=== PATIENT | female | born 1940 | race Two or more races ===

== ENCOUNTER 2020-09-21 00:26 | Inpatient (IN) | payer OTHER, MEDICAID ==
[2020-09-21] VITALS (9 sets, daily range): BP systolic 100–148; BP diastolic 64–96
[~2020-09-21] VITALS: Ht 157.5 cm; Wt 64.4 kg
--- NOTE | 2020-09-21 00:43 | Emergency Room Report ---
History of Present Illness General Chief Complaint: Dyspnea/Respdistress Source: Patient, EMS Present Illness HPI This is a 80-year-old Kiswahili-speaking female with a history of hypertension. She presents with complaint of shortness of breath. She tested positive for Covid 2 weeks ago. Was recuperating at home but symptoms worsen in the last couple days. She developed shortness of breath and worsening symptom today. She had to call 911 because she could not breathe. Per EMS, she was 84% on room air. She was 90% on a nonrebreather. Patient complaining of tightness in her chest. Has cough but nonproductive nature. Worse with exertion. Better with rest. No nausea vomiting or diarrhea. 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 COVID-19 Screening: Positive COVID-19 COVID-19 Testing Source: UNKNOWN Patient History Past Medical History: see triage record, old chart reviewed, HTN Past Surgical History: other Pertinent Family History: none Social History: Denies: smoking Now: No Immunizations: other Reviewed Nursing Documentation: PMH: Agreed; PSxH: Agreed Review of Systems Constitutional: Reports: weakness Eye: Denies: eye pain, blurred vision ENT: Denies: ear pain, nose congestion, throat swelling Respiratory: Reports: cough, shortness of breath Cardiovascular: Denies: chest pain, palpitations Gastrointestinal: Denies: abdominal pain, diarrhea, nausea, vomiting Musculoskeletal: Denies: back pain, joint pain Skin: Denies: rash Neurological: Denies: headache, numbness Endocrine: Denies: increased thirst, increased urine Hematologic/Lymphatic: Denies: easy bruising All Other Systems: negative except mentioned in HPI Physical Exam Vitals with hypoxia Sp02 EP Interpretation: reviewed, abnormal General Appearance: well appearing, alert, moderate distress, other - Ill- appearing Head: normocephalic, atraumatic Eyes: bilateral eye PERRL, bilateral eye EOMI ENT: hearing grossly normal, normal pharynx Neck: full range of motion, supple, no meningismus Respiratory: chest non-tender, respiratory distress, decreased breath sounds, accessory muscle use, rhonchi Cardiovascular #1: regular rate, rhythm, no murmur Gastrointestinal: normal bowel sounds, non tender, no mass, no organomegaly, no bruit, non-distended Musculoskeletal: back normal, normal range of motion, gait/station normal Psychiatric: mood/affect normal Procedures Critical Care Time Critical Care Time Critical care is mandated in this patient who presented with acute respiratory failure from Covid pneumonia. Patient require my urgent intervention to attenuate the risks of metabolic collapse which may lead to cardiovascular collapse and . Critical care time is 35 minutes excluding any reportable procedure. Critical care time included evaluation, multiple reevaluation, looking at old charts, interpreting laboratory and diagnostic data, discussing case with patient and family and consultants, and charting. Medical Decision Making Diagnostic Impression: Primary Impression: Acute respiratory failure with hypoxia Additional Impressions: Pneumonia due to COVID-19 virus Sepsis Qualified Codes: A41.9 - Sepsis, unspecified organism; R65.20 - Severe sepsis without septic shock; J96.01 - Acute respiratory failure with hypoxia ER Course This patient presents with acute respiratory failure secondary to Covid pneumonia. Prognosis poor because of her age and medical condition and hypoxia. Better with BiPAP. She is more comfortable. Antibiotics given here. Steroid also given and Lovenox given. EKG Diagnostic Results Troponin ordered: Yes Rate: tachycardiac Rhythm: NSR ST Segments: other - NSST changes Rhythm Strip Diag. Results EP Interpretation: yes Rate: 100 Rhythm: NSR, no PVC's, no ectopy Chest X-Ray Diagnostic Results Chest X-Ray Diagnostic Results : Chest X-Ray Ordered: Yes # of Views/Limited/Complete: 1 View Indication: Shortness of Breath EP Interpretation: Yes Interpretation: no effusion, no pneumothorax, other - Bilateral interstitial and airspace infiltrates Impression: Other - Bilateral infiltrates Electronically Signed by: Lazaro Chaparro MD Status: improved Disposition: ADMITTED INPATIENT Condition: Serious Lazaro Chaparro MD Sep 21, 2020 00:43
[2020-09-21] MEDS ORDERED: cefTRIAXone 1 GM in NS 55 ML IV ONE (00:45)
[2020-09-21] MEDS ORDERED: dexAMETHasone 10mg/ml Inj IV ONE (00:45)
[2020-09-21] MEDS ORDERED: Azithromycin 500 MG in NS 275 ML IVPB ONE (00:45)
[2020-09-21] MEDS ORDERED: Enoxaparin 60mg Inj SUBQ ONE (00:45)
--- NOTE | 2020-09-21 00:45 | NUR ---
ED Nurse Note: Pt brought in by EMS. C/O SOB worse x2 days and recent positive covid 19 test. Pt on 15LPM non-rebreather with fast respiratory rate. Pt AAO x4.
--- NOTE | 2020-09-21 01:09 | Diagnostic Imaging Report ---
EXAM: XR Chest, 1 View CLINICAL HISTORY: SOB TECHNIQUE: Frontal view of the chest. COMPARISON: No relevant prior studies available. FINDINGS: Lungs: Bilateral interstitial and airspace opacities. Pleural space: No pleural effusion. No pneumothorax. Heart: Unremarkable. No cardiomegaly. IMPRESSION: Bilateral interstitial and airspace opacities, differential of multifocal infection/Covid or pulmonary edema.
--- NOTE | 2020-09-21 01:18 | NUR ---
ED Nurse Note: RT called, said pt will come in and give breathing treatment.
[2020-09-21 01:20] LABS: HEMATOCRIT 36.9 % (37.0-47.0); HEMOGLOBIN 13.3 G/DL (12.0-16.0); MEAN CORPUSCULAR VOLUME 78 FL (80-99); PLATELET COUNT 351 K/UL (150-450); RED BLOOD COUNT 4.73 M/UL (4.20-5.40); RED CELL DISTRIBUTION WIDTH 13.8 % (11.6-14.8)
--- NOTE | 2020-09-21 01:20 | NUR ---
ED Nurse Note: RT in room with pt, starting pt on bipap. Pt pulled up in bed.
[2020-09-21 01:21] LABS: WHITE BLOOD COUNT 23.5 K/UL (4.8-10.8)
[2020-09-21 01:23] LABS: INR 1.2 (0.9-1.1)
[2020-09-21 01:25] LABS: CALCIUM 7.4 MG/DL (8.5-10.1); POTASSIUM 4.6 MMOL/L (3.5-5.1)
[2020-09-21 01:41] LABS: ALBUMIN 2.4 G/DL (3.4-5.0); ALBUMIN/GLOBULIN RATIO 0.6 (1.0-2.7); BILIRUBIN,TOTAL 0.7 MG/DL (0.2-1.0); CKMB 4.7 NG/ML (0.0-3.6)
[2020-09-21] MEDS: Albuterol ud Inhalation HHN PRN (01:48)
--- NOTE | 2020-09-21 02:34 | NUR ---
ED Nurse Note: Lactic drawn and sent to lab, pt reports she is starting to feel better. Pt has no additional needs at this time.
--- NOTE | 2020-09-21 02:50 | Emergency Room Report ---
Sepsis Event Note Evaluation Current Stage of Sepsis: Sepsis Possible Source: Pulmonary Focused Exam Allergies: Coded Allergies: No Known Allergies (Unverified , 09/21/20) Date Exam Occurred: Sep 21, 2020 Time Exam Occurred: 02:49 Laboratory Studies Laboratory Tests Test 09/21/20 00:45 09/21/20 02:20 White Blood Count 23.5 K/UL (4.8-10.8) *H Red Blood Count 4.73 M/UL (4.20-5.40) Hemoglobin 13.3 G/DL (12.0-16.0) Hematocrit 36.9 % (37.0-47.0) L Mean Corpuscular Volume 78 FL (80-99) L Mean Corpuscular Hemoglobin 28.1 PG (27.0-31.0) Mean Corpuscular Hemoglobin Concent 36.0 G/DL (32.0-36.0) Red Cell Distribution Width 13.8 % (11.6-14.8) Platelet Count 351 K/UL (150-450) Mean Platelet Volume 6.6 FL (6.5-10.1) Neutrophils (%) (Auto) % (45.0-75.0) Lymphocytes (%) (Auto) % (20.0-45.0) Monocytes (%) (Auto) % (1.0-10.0) Eosinophils (%) (Auto) % (0.0-3.0) Basophils (%) (Auto) % (0.0-2.0) Differential Total Cells Counted 100 Neutrophils % (Manual) 51 % (45-75) Lymphocytes % (Manual) 45 % (20-45) Monocytes % (Manual) 4 % (1-10) Eosinophils % (Manual) 0 % (0-3) Basophils % (Manual) 0 % (0-2) Band Neutrophils 0 % (0-8) Platelet Estimate Adequate Platelet Morphology Normal Microcytosis 1+ Prothrombin Time 12.7 SEC (9.30-11.50) H Prothromb Time International Ratio 1.2 (0.9-1.1) H Activated Partial Thromboplast Time 31 SEC (23-33) D-Dimer 16.99 mg/L FEU (0.00-0.49) H Sodium Level 124 MMOL/L (136-145) L Potassium Level 4.6 MMOL/L (3.5-5.1) Chloride Level 89 MMOL/L (98-107) L Carbon Dioxide Level 23 MMOL/L (21-32) Anion Gap 12 mmol/L (5-15) Blood Urea Nitrogen 16 mg/dL (7-18) Creatinine 1.0 MG/DL (0.55-1.30) Estimat Glomerular Filtration Rate 53.5 mL/min (>60) Glucose Level 214 MG/DL (74-106) H Lactic Acid Level 4.90 mmol/L (0.4-2.0) H Pending Calcium Level 7.4 MG/DL (8.5-10.1) L Ferritin 492 NG/ML (8-388) H Total Bilirubin 0.7 MG/DL (0.2-1.0) Aspartate Amino Transf (AST/SGOT) 69 U/L (15-37) H Alanine Aminotransferase (ALT/SGPT) 73 U/L (12-78) Alkaline Phosphatase 77 U/L (46-116) Lactate Dehydrogenase 451 U/L (81-234) H Total Creatine Kinase 288 U/L (26-308) Creatine Kinase MB 4.7 NG/ML (0.0-3.6) H Creatine Kinase MB Relative Index 1.6 Troponin I 0.131 ng/mL (0.000-0.056) C-Reactive Protein, Quantitative 26.2 mg/dL (0.00-0.90) H Pro-B-Type Natriuretic Peptide 2428 pg/mL (0-125) H Total Protein 6.6 G/DL (6.4-8.2) Albumin 2.4 G/DL (3.4-5.0) L Globulin 4.2 g/dL Albumin/Globulin Ratio 0.6 (1.0-2.7) L Lipase 112 U/L (73-393) Vital Signs Last 24 Hour Vital Signs Date Time Temp Pulse Resp B/P (MAP) Pulse Ox O2 Delivery O2 Flow Rate FiO2 09/21/20 02:33 103 34 106/64 100 Bi-pap 100 09/21/20 02:06 103 36 115/68 99 Bi-pap 09/21/20 01:50 107 38 97 Bi-Pap 109 38 94 09/21/20 01:49 109 94 100 09/21/20 01:40 99.9 110 26 148/96 85 Non-Rebreather 15.0 09/21/20 01:40 110 38 09/21/20 00:27 99.9 112 26 148/96 (113) 85 Non-Rebreather 15.0 Respiratory Exam: Rhonchi Cardiovascular Exam: RRR Capillary Refill: Less Than 2 Seconds Peripheral Pulse: Strong Pulse Location: Radial Skin Exam: Normal Turgor Lazaro Chaparro MD Sep 21, 2020 02:50
--- NOTE | 2020-09-21 02:56 | NUR ---
NURSE NOTES: Camelia Omer RN called from ER. gave pt report. awaiting pt to arrive to SDU.
--- NOTE | 2020-09-21 02:57 | NUR ---
TRANSFER TO FLOOR: Patient transferred to [facility] as ordered, per Dr. Chaparro . Report given to NEISHA Sapp. Belongings sent to floor with pt and documented in the pt belonging inventory.
--- NOTE | 2020-09-21 03:26 | NUR ---
NURSE NOTES: pt received from ER. pt brought up with all belongings. pt is alert and oriented times 4, able to follow commands. pt is showing ST on panel monitor, 103 HR, no other cardiac abnormalities noted. pt remains short of breath, with non rebreather. pt is sating 86% O2. pt was placed back on BIPAP when transferred to SDU bed, sating 95% with BIPAP. pt bed is low, locked, armed, call light within reach, bed rails up times 3. establish plan of care.
[2020-09-21] MEDS: Albuterol ud Inhalation HHN SCH ×6 (03:33→23:26)
--- NOTE | 2020-09-21 03:37 | NUR ---
NURSE NOTES: Called doctor Traore for admitting orders. reported pts current situation, status, vital signs, lab values, and history of pt. doctor Traore wanted to continue all ED orders. additionally Doctor ordered Lovenox for DVT prof, NS at 75 cc, Zosyn pharm to dose, Decadron IV, CBC BMP for AM labs, and to add doctor Tirmijessica for Pulmo on the case. will follow orders.
[2020-09-21 05:58] LABS: HEMATOCRIT 33.8 % (37.0-47.0); HEMOGLOBIN 12.2 G/DL (12.0-16.0); MEAN CORPUSCULAR VOLUME 79 FL (80-99); PLATELET COUNT 299 K/UL (150-450); RED BLOOD COUNT 4.29 M/UL (4.20-5.40); RED CELL DISTRIBUTION WIDTH 13.2 % (11.6-14.8)
[2020-09-21 06:01] LABS: ANION GAP 10 mmol/L (5-15); CARBON DIOXIDE 22 MMOL/L (21-32); CHLORIDE 94 MMOL/L (98-107); CREATININE 0.7 MG/DL (0.55-1.30); POTASSIUM 4.6 MMOL/L (3.5-5.1); SODIUM 126 MMOL/L (136-145)
[2020-09-21 06:20] LABS: WHITE BLOOD COUNT 23.9 K/UL (4.8-10.8)
[2020-09-21] MEDS: Piperacillin/Tazobactam 3.375 GM in NS 110 ML IVPB SCH ×3 (06:21→21:17)
[2020-09-21 06:35] LABS: BLOOD UREA NITROGEN 14 mg/dL (7-18)
--- NOTE | 2020-09-21 07:30 | NUR ---
NURSE HAND-OFF REPORT: Important Events on Shift:[admission] Patient Status: [monitor O2] Diet: [] Pending Orders: [NA] Pending Results/Labs:[AM labs] Pending MD notification:[AM labs] Latest Vital Signs: Temperature 98.7 , Pulse 100 , B/P 127 /76 , Respiratory Rate 33 , O2 SAT 95 , Bi-pap, O2 Flow Rate 15.0 . Vital Sign Comment: [monitor O2] EKG Rhythm: Sinus Rhythm Rhythm change?: N MD Notified?: - MD Response: Latest Velazquez Fall Score: 20 Fall Risk: Low Risk Safety Measures: Call light Within Reach, Bed Alarm Zone 2, Side Rails Side Rails x3, Bed position Low and Locked. Fall Precautions: Patient Fall Education Report given to [Maryann DRIVER].
--- NOTE | 2020-09-21 08:00 | NUR ---
NURSE NOTES: Pt was assessed after receiving change of shift report from Sekou DRIVER. Awake, alert, oriented x3, Occitan speaking. On Bipap, 15/10, FIO2 100% O2Sat 95%. Bilateral rales on auscultation. NSR on nuclear monitoring technician. Temp 97F axillary. Peripheral IV access on Right AC, NS is infusing at 75ml/hour. Abdomen is slightly distended, pt reports frequent need to urinate, Uses bedpan for urination, output of cloudy/dark jaye urine. Skin is intact. HOB at high-sarmiento's, bed locked, three side rails up, call light within easy reach. Will continue with plan of care.
--- NOTE | 2020-09-21 10:00 | NUR ---
NURSE NOTES: Augusto JONES rounding, updated on pt's current status. Informed regarding AM lab values including Na 126L. Pt is currently on NS infusing at 75ml/hour. Order received to cancel current diet order and continue current IV fluids.
[2020-09-21] MEDS: dexAMETHasone 10mg/ml Inj IV SCH (10:01)
[2020-09-21] MEDS: Enoxaparin 60mg Inj SUBQ SCH (10:02)
[2020-09-21] MEDS ORDERED: Omnipaque 350 100ml vial INJ PRN (12:15)
--- NOTE | 2020-09-21 12:15 | NUR ---
NURSE NOTES: Pt was seen by Dr Traore. MD was updated on pt's current status. Per MD, add Ensure to diet TID, and okay if pt unable to consume other PO diet, due to continuous Bipap, "provide Ensure to pt TID". No other orders at this time.
--- NOTE | 2020-09-21 12:30 | NUR ---
NURSE NOTES: Dr Sen is at the nurse's station. Order was placed for CTA of chest with contrast. Pt's family was contacted, spoke with pt's son Chepe Mckeon and received telephone consent for contrast.
--- NOTE | 2020-09-21 12:41 | Consultation ---
Consult Note Consult Note DATE OF CONSULTATION: 09/21/2020 CONSULTING PHYSICIAN: Shakeel Sen MD. ATTENDING PHYSICIAN: Dr. Traore REASON FOR CONSULTATION: COVID-19 pneumonia, elevated D-dimer HISTORY OF PRESENT ILLNESS: This is a 80-year-old female with history of hypertension, who presented to the ED for evaluation of shortness of breath. She reported testing positive for COVID-19 2 weeks ago. Patient was recovering at home but her symptoms worsened in the last few days. She was hypoxic on arrival and her oxygen saturation improved to 90% on a nonrebreather. She complained of tightness in her chest. She also presented with nonproductive cough which was worse with exertion. Her initial laboratory studies are remarkable for leukocytosis, markedly elevated D-dimer, hyperglycemia, hypocalcemia, elevated troponin, and elevated BNP. She was admitted to SDU. PAST MEDICAL HISTORY: Hypertension MEDICATIONS: Full list of home medications not available at this time ALLERGIES: No known allergy FAMILY HISTORY: Unknown PERSONAL/SOCIAL HISTORY: Patient is from home REVIEW OF SYSTEMS: Negative except mentioned in HPI PHYSICAL EXAMINATION: VITAL SIGNS: Blood pressure 109/65, heart rate 101, respiratory rate 22, weight 64 kg, height 157 cm General: Patient appears NAD on BiPAP. HEENT: Head exam reveals that the head is normocephalic, atraumatic without deformity or unusual swelling. Pupils are PERRLA. CHEST AND LUNGS: Rhonchi appreciated, decreased breath sounds CARDIOVASCULAR: Reveals normal S1, S2 without murmurs, rubs, or clicks. ABDOMEN: Soft with no tenderness or organomegaly. RECTAL: Deferred. MUSCULOSKELETAL: There is no tenderness to palpation. Range of motion is normal. NEUROLOGICAL: Alert and oriented x3 , nonfocal LABORATORY DATA: Laboratory testing shows WBC 23.9, hematocrit 33.8. Chemistries show sodium 126, chloride 94, glucose 178, calcium 7.0, lactic acid 2.4, troponin 0 0.131, CRP 26.2, BNP 2428 Assessment/Plan 1. Elevated inflammatory markers -Given her presentation, we will order CTA of chest with contrast to rule out pulmonary embolism -On Lovenox 2. Recent history of COVID-19 pneumonia with hypoxia on arrival -Patient was reported to test positive for COVID-19 2 weeks prior -On dexamethasone, and Zosyn 3. Hypoxia -Currently saturating at 98% on BiPAP 15/10, 100% FiO2 Will attempt weaning down to nonrebreather 4. Hyperglycemia, likely steroid-induced -Monitor blood glucose 5. Elevated troponin -Recommend serial troponin 6. Leukocytosis -On broad-spectrum antibiotics -Afebrile The care for this patient was discussed with my supervising physician. Time spent for this case was approximately 31 minutes. Augusto Hein Sep 21, 2020 12:41
--- NOTE | 2020-09-21 14:30 | NUR ---
NURSE NOTES: Pt uses bedpan for frequent urination, however with minimal output and is now complaining of bladder pain/discomfort. Starks catheter was inserted per order; with immediate initial output of 600mL dark yellow/jaye urine. Pt reports relief from discomfort.
--- NOTE | 2020-09-21 15:15 | NUR ---
NURSE NOTES: pc maintenance technician/transporter is the nurse's station to transfer pt for CTA of chest, spoke with RT, pt is currently on Bipap 15/10 FIo2 100%, and unable to tolerate lower FIO2 without immediately desaturating. Per RT, unsafe to transfer pt at this time due to Bipap/100% FIo2 dependency, will attempt tomorrow.
--- NOTE | 2020-09-21 16:30 | NUR ---
NURSE NOTES: Pt is confused and removed Bipap off face, and immediately desaturated down to 70% on room air. Bipap was placed back on face, and O2Sat improved back up to 90%. Pt was cleaned, bed bath given, gown/bed linens were changed. Pt was repositioned for comfort. Remains afebrile.
--- NOTE | 2020-09-21 19:30 | NUR ---
NURSE NOTES: Received report from Susy DRIVER. Awake, alert, oriented x3, Citizen Of [place] speaking. On Bipap, 15/10, FIO2 100% O2Sat 95%. ST on night monitor HR103. Temp 98.1 F axillary. Peripheral IV access on Right AC, NS is infusing at 75ml/hour.Starks draining. Skin is intact. HOB at high-sarmiento's, bed locked, three side rails up, call light within easy reach. Covid +. Airborne precaution maintained and observed. Will continue with plan of care.
--- NOTE | 2020-09-21 19:35 | NUR ---
NURSE HAND-OFF REPORT: Important Events on Shift:bipap, antibiotics, consent obtained for CTA Patient Status: stable Diet: low sodium Pending Orders: n/a Pending Results/Labs:n/a Pending MD notification:n/a Latest Vital Signs: Temperature 97.9 , Pulse 57 , B/P 126 /66 , Respiratory Rate 45 , O2 SAT 95 , Bi-pap, O2 Flow Rate 15.0 . Vital Sign Comment: n/a EKG Rhythm: Sinus Rhythm Rhythm change?: N MD Notified?: - MD Response: Latest Velazquez Fall Score: 20 Fall Risk: Low Risk Safety Measures: Call light Within Reach, Bed Alarm Zone 2, Side Rails Side Rails x3, Bed position Low and Locked. Fall Precautions: Yellow Socks Yellow Gown Door Sign Patient Fall Education Report given to Rosa DRIVER.
[2020-09-22] VITALS: BP 140/78
--- NOTE | 2020-09-22 01:00 | NUR ---
NURSE NOTES: Bed bath given tolerated well.
[2020-09-22] MEDS: Albuterol ud Inhalation HHN SCH ×6 (03:26→23:00)
[2020-09-22 04:00] VITALS: BP 137/78
[2020-09-22] MEDS: Piperacillin/Tazobactam 3.375 GM in NS 110 ML IVPB SCH ×3 (05:38→22:00)
--- NOTE | 2020-09-22 07:20 | NUR ---
NURSE HAND-OFF REPORT: Important Events on Shift: Patient Status: Diet: Pending Orders: none Pending Results/Labs: Pending MD notification: Latest Vital Signs: Temperature 98.1 , Pulse 97 , B/P 137 /78 , Respiratory Rate 41 , O2 SAT 97 , Bi-pap, O2 Flow Rate 15.0 . Vital Sign Comment: stable EKG Rhythm: Sinus Tachycardia Rhythm change?: N MD Notified?: - MD Response: Latest Velazquez Fall Score: 20 Fall Risk: Low Risk Safety Measures: Call light Within Reach, Bed Alarm Zone 2, Side Rails Side Rails x3, Bed position Low and Locked. Fall Precautions: Yellow Socks Yellow Gown Door Sign Patient Fall Education Report given to .
--- NOTE | 2020-09-22 07:20 | NUR ---
NURSE NOTES: Received report from Rosa DRIVER.
[2020-09-22 08:00] VITALS: BP 137/72
--- NOTE | 2020-09-22 08:45 | NUR ---
NURSE NOTES: Pt. in bed, awake, a/o x 2-3. Forgetful and confused at times. No sign of distress. On cont. Bipap 15/10 with Fi O2 of 100%. IV at right AC #20g. in placed patent/intact. And inserted a right hand #20g. in placed patent/intact. F/C in placed patent/intact draining dark jaye colored urine. Bed in low position, locked. Call light within reach. Will cont. to monitor.
[2020-09-22] MEDS: dexAMETHasone 10mg/ml Inj IV SCH (09:02)
[2020-09-22] MEDS: Enoxaparin 60mg Inj SUBQ SCH (09:02)
--- NOTE | 2020-09-22 09:26 | General Progress Note ---
Subjective Date patient seen: Sep 22, 2020 Constitutional: Reports: weakness HEENT: Reports: no symptoms Cardiovascular: Reports: no symptoms Respiratory: Reports: shortness of breath Gastrointestinal/Abdominal: Reports: no symptoms Neurologic/Psychiatric: Reports: no symptoms Hematologic/Lymphatic: Reports: no symptoms Allergies: Coded Allergies: No Known Allergies (Unverified , 09/21/20) Subjective sob on bipap taking off intermittentely Objective Last 24 Hour Vital Signs Date Time Temp Pulse Resp B/P (MAP) Pulse Ox O2 Delivery O2 Flow Rate FiO2 09/22/20 07:53 105 44 99 Bi-Pap 100 109 40 100 100 09/22/20 05:19 97 41 97 100 09/22/20 04:00 98.1 114 24 137/78 (97) 95 09/22/20 04:00 100 09/22/20 04:00 98 09/22/20 04:00 Bi-pap 09/22/20 03:26 99 36 93 Bi-Pap 100 98 37 96 100 09/22/20 00:31 107 42 94 100 09/22/20 00:00 Bi-pap 09/22/20 00:00 98.1 111 24 140/78 (98) 95 09/22/20 00:00 120 09/22/20 00:00 100 09/21/20 23:22 105 36 92 Bi-Pap 85 106 39 95 85 09/21/20 21:10 108 36 92 80 09/21/20 20:00 98.1 103 24 139/78 (98) 99 09/21/20 20:00 100 09/21/20 20:00 99 09/21/20 20:00 Bi-pap 09/21/20 19:58 100 38 100 Bi-Pap 80 101 36 98 80 09/21/20 16:08 57 45 95 Bi-Pap 100 61 40 100 100 09/21/20 16:00 100 09/21/20 16:00 98 09/21/20 16:00 97.9 102 24 126/66 (86) 99 09/21/20 16:00 Bi-pap 09/21/20 12:00 100 09/21/20 12:00 101 09/21/20 12:00 96.4 98 22 109/65 (80) 98 09/21/20 12:00 Bi-pap 09/21/20 11:20 98 40 99 Bi-Pap 100 99 38 100 100 Intake and Output 09/21/20 09/22/20 19:00 07:00 Intake Total 1092.5 ml 1547.5 ml Output Total 1400 ml 1200 ml Balance -307.5 ml 347.5 ml Intake Oral 500 ml IV Total 1092.5 ml 1047.5 ml Output Urine Total 1400 ml 1200 ml Height (Feet): 5 Height (Inches): 2.00 Weight (Pounds): 142 General Appearance: alert EENT: PERRL/EOMI Neck: supple Cardiovascular: regular rhythm Respiratory/Chest: rhonchi - bilaterally Abdomen: non tender, soft Extremities: non-tender Assessment/Plan Assessment/Plan: ac resp failure covid pna hyperglycemia hx htn agitation iv abx iv sdecadrone add ss, accue check cont bipap dw pulmonary Ori Traore MD Sep 22, 2020 09:25
[2020-09-22] MEDS: NovoLOG Insulin Flexpen SUBQ SCH ×3 (11:30→21:00)
--- NOTE | 2020-09-22 11:38 | Pulmonology Progress Note ---
Subjective ROS Limited/Unobtainable: Yes Interval Events: did not tolerate NRB Constitutional: Reports: no symptoms HEENT: Repors: no symptoms Respiratory: Reports: shortness of breath Cardiovascular: Reports: no symptoms Gastrointestinal/Abdominal: Reports: no symptoms Allergies: Coded Allergies: No Known Allergies (Unverified , 09/21/20) Objective Last 24 Hour Vital Signs Date Time Temp Pulse Resp B/P (MAP) Pulse Ox O2 Delivery O2 Flow Rate FiO2 09/22/20 08:00 96.6 105 16 137/72 (93) 99 09/22/20 08:00 100 09/22/20 08:00 Bi-pap 09/22/20 07:53 105 44 99 Bi-Pap 100 109 40 100 100 09/22/20 07:42 103 09/22/20 05:19 97 41 97 100 09/22/20 04:00 98.1 114 24 137/78 (97) 95 09/22/20 04:00 100 09/22/20 04:00 98 09/22/20 04:00 Bi-pap 09/22/20 03:26 99 36 93 Bi-Pap 100 98 37 96 100 09/22/20 00:31 107 42 94 100 09/22/20 00:00 Bi-pap 09/22/20 00:00 98.1 111 24 140/78 (98) 95 09/22/20 00:00 120 09/22/20 00:00 100 09/21/20 23:22 105 36 92 Bi-Pap 85 106 39 95 85 09/21/20 21:10 108 36 92 80 09/21/20 20:00 98.1 103 24 139/78 (98) 99 09/21/20 20:00 100 09/21/20 20:00 99 09/21/20 20:00 Bi-pap 09/21/20 19:58 100 38 100 Bi-Pap 80 101 36 98 80 09/21/20 16:08 57 45 95 Bi-Pap 100 61 40 100 100 09/21/20 16:00 100 09/21/20 16:00 98 09/21/20 16:00 97.9 102 24 126/66 (86) 99 09/21/20 16:00 Bi-pap 09/21/20 12:00 100 09/21/20 12:00 101 09/21/20 12:00 96.4 98 22 109/65 (80) 98 09/21/20 12:00 Bi-pap Intake and Output 09/21/20 09/22/20 19:00 07:00 Intake Total 1092.5 ml 1547.5 ml Output Total 1400 ml 1200 ml Balance -307.5 ml 347.5 ml Intake Oral 500 ml IV Total 1092.5 ml 1047.5 ml Output Urine Total 1400 ml 1200 ml General Appearance: no acute distress HEENT: atraumatic Respiratory: rhonchi - bilaterally Cardiovascular: normal rate Abdomen: soft, non tender Microbiology Date/Time Source Procedure Growth Status 09/21/20 00:45 Blood Blood Culture - Preliminary NO GROWTH AFTER 24 HOURS Resulted 09/21/20 00:20 Blood Blood Culture - Preliminary NO GROWTH AFTER 24 HOURS Resulted Current Medications Medications (Trade) Dose Ordered Sig/Lui Route PRN Reason Start Time Stop Time Status Last Admin Dose Admin Acetaminophen (Tylenol) 650 mg Q4HR PRN ORAL TEMP>100.5 09/21/20 03:00 Albuterol Sulfate (Proventil) 2.5 mg Q15MIN PRN HHN Shortness of Breath 09/21/20 00:45 09/21/20 01:48 Albuterol Sulfate (Proventil) 2.5 mg Q4HRT HHN 09/21/20 03:00 09/26/20 02:59 09/22/20 10:42 Dexamethasone Sodium Phosphate (Decadron 10mg/ ml Inj) 6 mg DAILY IV 09/21/20 09:00 12/20/20 08:59 09/22/20 09:02 Dextrose (Dextrose 50%) 25 ml Q30M PRN IV Hypoglycemia 09/22/20 10:15 12/21/20 10:14 Dextrose (Dextrose 50%) 50 ml Q30M PRN IV Hypoglycemia 09/22/20 10:15 12/21/20 10:14 Enoxaparin Sodium (Lovenox) 60 mg DAILY SUBQ 09/21/20 09:00 12/20/20 08:59 09/22/20 09:02 Insulin Aspart (NovoLOG) BEFORE MEALS AND HS SUBQ 09/22/20 11:30 12/21/20 11:29 Iohexol (Omnipaque 350 100ml) 100 ml NOW PRN INJ Radiology Procedure 09/21/20 12:15 09/23/20 12:14 Ondansetron HCl (Zofran) 4 mg PRN PRN IVP Nausea & Vomiting 09/21/20 03:00 Piperacillin Sod/ Tazobactam Sod 3.375 gm/Sodium Chloride 110 ml @ 27.5 mls/hr EVERY 8 HOURS IVPB 09/21/20 06:00 09/26/20 05:59 09/22/20 05:38 Sodium Chloride 1,000 ml @ 75 mls/hr [id number] IV 09/21/20 04:00 10/21/20 03:59 09/21/20 21:18 Assessment/Plan Assessment/Plan 1. Elevated inflammatory markers -Given her presentation, we will order CTA of chest with contrast to rule out pulmonary embolism -On Lovenox 2. Recent history of COVID-19 pneumonia with hypoxia on arrival -Patient was reported to test positive for COVID-19 2 weeks prior -On dexamethasone, and Zosyn 3. Hypoxia -Currently saturating at 98% on BiPAP 15/10 -> 12/5, 100% FiO2 Will attempt titrating 4. Hyperglycemia, likely steroid-induced -Monitor blood glucose - low dose insulin sliding scale 5. Elevated troponin -Recommend serial troponin 6. Leukocytosis -On broad-spectrum antibiotics -Afebrile The care for this patient was discussed with my supervising physician. Time spent for this case was approximately 31 minutes. Augusto Hein Sep 22, 2020 11:38
[2020-09-22 12:00] VITALS: BP 154/93
--- NOTE | 2020-09-22 12:20 | NUR ---
NURSE NOTES: Sponge bath given to pt. Cooperative with care. Able to self reposition. On cont. Bipap. No grimacing noted. Anxious at times.
[2020-09-22] MEDS: Albuterol ud Inhalation HHN PRN (15:16)
[2020-09-22 16:00] VITALS: BP 142/85
[2020-09-22 16:18] LABS: BILIRUBIN, URINE NEGATIVE (NEGATIVE); COLOR,URINE PALE YELLOW; GLUCOSE, URINE (UA) NEGATIVE (NEGATIVE); KETONES,URINE NEGATIVE (NEGATIVE); LEUKOCYTE ESTERASE ,URINE NEGATIVE (NEGATIVE); NITRITE,URINE NEGATIVE (NEGATIVE); PH,URINE 8 (4.5-8.0); PROTEIN,URINE 3+ (NEGATIVE); UROBILINOGEN,URINE NORMAL MG/DL (0.0-1.0)
[2020-09-22 16:23] LABS: APPEARANCE,URINE SLIGHTLY CLOUDY
--- NOTE | 2020-09-22 19:20 | NUR ---
NURSE NOTES: Received report from Federica DRIVER.patient Awake, alert, oriented x3, Lao speaking. On Bipap, 15/10, FIO2 100% O2Sat 95%. SR on monitor worker HR 83. Temp 98.1 F axillary. IV line intact infusing 75ml/hour.Starks draining. Skin is intact. HOB bed locked, call light within easy reach. Covid +. Airborne precaution maintained and observed. Will continue with plan of care.
--- NOTE | 2020-09-22 19:24 | NUR ---
NURSE HAND-OFF REPORT: Important Events on Shift: Pt. on cont. Bipap Patient Status: stable Diet: npo Pending Orders: [] Pending Results/Labs:[] Pending MD notification:[] Latest Vital Signs: Temperature 98.0 , Pulse 105 , B/P 142 /85 , Respiratory Rate 38 , O2 SAT 96 , Bi-pap, O2 Flow Rate 15.0 . Vital Sign Comment: wnl EKG Rhythm: Sinus Tachycardia Rhythm change?: N MD Notified?: - MD Response: Latest Velazquez Fall Score: 20 Fall Risk: Low Risk Safety Measures: Call light Within Reach, Bed Alarm Zone 2, Side Rails Side Rails x3, Bed position Low and Locked. Fall Precautions: Yellow Socks Yellow Gown Door Sign Patient Fall Education Report given to Rosa DRIVER.
[2020-09-22 20:00] VITALS: BP 146/89
[2020-09-23] VITALS (43 sets, daily range): BP systolic 63–158; BP diastolic 46–130
--- NOTE | 2020-09-23 | NUR ---
NURSE NOTES: Bed bath given tolerated well.
--- NOTE | 2020-09-23 02:00 | NUR ---
NURSE NOTES: Patient in bed sleeping comfortably.
[2020-09-23] MEDS: Albuterol ud Inhalation HHN SCH ×3 (03:00→11:00)
--- NOTE | 2020-09-23 03:52 | NUR ---
NURSE NOTES: Patient desatting to 80% On BIPAP 07/27 fi02 100%. patient restless instructed patient to relax, encouraged patient to verbalized needs,fears and feelings to staff. repositioned and talk therapy provided translated by Russian speaking nurse, per patient she wants to see her mother. reality orientation provided. ordered stat ABG. will continue plan of care.
--- NOTE | 2020-09-23 04:40 | NUR ---
called NAIL POLISH BRUSH MACHINE FEEDER
--- NOTE | 2020-09-23 04:42 | NUR ---
NURSE NOTES: Called Dr. Sen made aware of ABG and patient CONSULTING ENGINEER and changed of condition. per Dr. Sen transfer to ICu, call ER MD to intubate patient. Called ER spoke with Gabriel martinez inform ER MD.
--- NOTE | 2020-09-23 04:52 | NUR ---
LOSS PREVENTION SUPERVISOR Note: LOSS PREVENTION SUPERVISOR was called at [SDU room 238-1] by [Tanisha DRIVER], and notified MD [Dr. Sen]. Pt transferred to [ICU] at [[id number]]. See LOSS PREVENTION SUPERVISOR documentation form for full report.
--- NOTE | 2020-09-23 05:05 | NUR ---
NURSE NOTES: RECEIVED PATIENT FROM NEISHA GALLOWAY VIA HOSPITAL BED AFTER INSTANT POTATO PROCESSOR. PATIENT LETHARGIC, NO RESPONSE TO VOICE AND TACTILE STIMULI AT THAT TIME, ON BIPAP 12/5, FIO2 100%, DESATURATION 50% NOTED, PPL TO RIGHT AC AND LEFT HAQND, F/C INTACT AND PATENT, MIKE COLOR URINE OUTED, WILL CONTINUE TO MONITOR.
--- NOTE | 2020-09-23 05:20 | NUR ---
NURSE NOTES: CALLED DR. HAMILTON REGARDING PT'S SITUATION BP 63/49MMHG, INTUBATION AND CENTRAL LINE INSERTION STATUS BY ER DOCTOR THAT LEFT MESSAGE AWAIT CALL.
--- NOTE | 2020-09-23 05:57 | Emergency Room Report ---
History of Present Illness General Chief Complaint: Dyspnea/Respdistress Source: Patient Present Illness HPI 80-year-old female who was admitted to stepdown unit on BiPAP for acute respiratory failure with hypoxia from Covid pneumonia. She deteriorated and required intubation. I intubated the patient after giving her succinylcholine and etomidate. Intubation without any difficulty. Afterward her blood pressure dropped so I place a central line. Allergies: Coded Allergies: No Known Allergies (Unverified , 09/21/20) COVID-19 Screening Contact w/high risk pt: Yes Experienced COVID-19 symptoms?: Yes COVID-19 Testing performed HEAD TRANSFER CLERK: Yes - 2 WEEKS AGO COVID-19 Screening: Positive COVID-19 COVID-19 Testing Source: UNKNOWN Patient History Now: No Nursing Documentation-[facility] Past Medical History: No History, Except For Hx Hypertension: Yes Physical Exam Vital Signs Date Time Temp Pulse Resp B/P (MAP) Pulse Ox O2 Delivery O2 Flow Rate FiO2 09/21/20 00:27 99.9 112 26 148/96 (113) 85 Non-Rebreather 15.0 09/21/20 01:49 100 Procedures Central Line Central Line : Consent: Emergent Central Line Lumen: triple Maximal Sterile Barrier Tech: yes cap, yes mask, yes sterile gown, yes sterile gloves, yes large sterile sheet, yes hand hygiene, yes chlorhexidine prep Central Line Postion: femoral (R) US Guided Line?: No Complications: none Central Line Post Position: sutured Attempts: One Patient Tolerated: Well Complications: None Intubation Intubation : Consent: Emergent Intubation Method: orotracheal Tube Size (cm): 7.5 Medications: Etomidate, Succinylcholine Breath Sounds after Intubation: equal Intubation Complications: no complications, O2 saturation decreased Post Intubation Xray: Yes Progress/Xray Impression: Tracheal tube in good position. Multi lobar infiltrates Attempts: One Patient Tolerated: Well Complications: None Medical Decision Making Diagnostic Impression: Primary Impression: Acute respiratory failure with hypoxia Additional Impressions: Pneumonia due to COVID-19 virus Sepsis Qualified Codes: A41.9 - Sepsis, unspecified organism; R65.20 - Severe sepsis without septic shock; J96.01 - Acute respiratory failure with hypoxia Respiratory failure requiring intubation ER Course Patient with respiratory failure required intubation secondary to Covid pneumonia and hypoxia. Prognosis poor secondary to her age and multiple medical problems. Chest X-Ray Diagnostic Results Chest X-Ray Diagnostic Results : Chest X-Ray Ordered: Yes # of Views/Limited/Complete: 1 View Indication: Shortness of Breath EP Interpretation: Yes Interpretation: no effusion, no pneumothorax, other - Tracheal tube in good position. No pneumothorax. Multi lobar infiltrates. Impression: Other - Status post intubation. Multi lobar infiltrates. Endotracheal tube in good position. Electronically Signed by: Lazaro Chaparro MD Last Vital Signs Date Time Temp Pulse Resp B/P (MAP) Pulse Ox O2 Delivery O2 Flow Rate FiO2 09/23/20 05:32 78 29 100 09/23/20 04:00 Bi-pap 09/23/20 00:00 98.2 144/97 (113) 95 09/21/20 01:40 15.0 Status: improved Disposition: ADMITTED INPATIENT Condition: Critical Referrals: NOT CHOSEN IPA/,REFERRING (PCP) Lazaro Chaparro MD Sep 23, 2020 05:57
--- NOTE | 2020-09-23 05:59 | History and Physical Report ---
DATE OF ADMISSION: 09/21/2020 HISTORY OF PRESENT ILLNESS: This is a 80-year-old cachectic female, came to the emergency room for shortness of breath and hypoxia. The patient was found to have severe hypoxia, was placed on BiPAP and was found to have COVID pneumonia. The patient is alert and oriented. PAST MEDICAL HISTORY: Significant for hypertension. MEDICATIONS: Not available. ALLERGIES: NKA. FAMILY HISTORY: Noncontributory. SOCIAL HISTORY: The patient lives with the family with the son. REVIEW OF SYSTEMS: Generalized weakness, tired, cough with sputum production, and feeling short of breath on exertion. Weight loss and having recurrent fever. PHYSICAL EXAMINATION: VITAL SIGNS: Her blood pressure 100/71, pulse 87, respirations 24, temperature 97, and saturation 95% on 100% oxygen. SKIN: Good skin turgor. HEENT: Eyes are open. NECK: Supple. CHEST: Bilaterally scattered wheezing and crackles. CARDIOVASCULAR: Regular rhythm. No gallop. No murmur. ABDOMEN: Soft. Positive bowel sounds. EXTREMITIES: No edema. : Deferred. LABORATORY EXAMINATION: White counts are 23,000, hemoglobin 13, hematocrit 36, and platelets are 351. Chemistry panel, sodium 126, potassium 4.6, BUN 14, creatinine 0.7, glucose is 218. Lactic acid is 4.90, 2.50. Coagulation, INR is 1.2. IMAGING: Chest x-ray is showing bilateral interstitial airspace opacity. Differential is multifocal infection, COVID, or pulmonary edema. ASSESSMENT: 1. Acute respiratory failure. 2. COVID pneumonia. 3. Weight loss. 4. Severe hyponatremia. 5. History of hypertension. 6. Weakness. PLAN: The patient is currently on BiPAP, isolation, 100% oxygen. Continue Decadron. Continue Lovenox and Zosyn. Continue albuterol, Tylenol, Zofran, bronchodilator treatments. Consider Pulmonary consult and we will titrate BiPAP. Discussed with the airplane gas tank liner assembler, Dr. Sen. Valentino Traore M.D. DR: Omar JOB#: [id number] CC:
[2020-09-23] MEDS: Piperacillin/Tazobactam 3.375 GM in NS 110 ML IVPB SCH ×3 (06:20→22:03)
[2020-09-23] MEDS: NovoLOG Insulin Flexpen SUBQ SCH ×4 (06:20→21:19)
--- NOTE | 2020-09-23 06:35 | NUR ---
NURSE NOTES: PATIENT LETHARGIC, BP 97/77MMHG, HR 91/MIN SR, O2 SATURATION 60% NOTED ON AC 15/TV500/FIO2 1005/PEEP 5 AT THIS TIME.
[2020-09-23 07:12] LABS: ALANINE AMINOTRANSFERASE 141 U/L (12-78); ALBUMIN 1.8 G/DL (3.4-5.0); ALBUMIN/GLOBULIN RATIO 0.5 (1.0-2.7); ALKALINE PHOSPHATASE 140 U/L (46-116); ANION GAP 15 mmol/L (5-15); ASPARTATE AMINO TRANSFERASE 193 U/L (15-37); BILIRUBIN,TOTAL 0.7 MG/DL (0.2-1.0); BLOOD UREA NITROGEN 19 mg/dL (7-18); CARBON DIOXIDE 16 MMOL/L (21-32); CHLORIDE 110 MMOL/L (98-107); CREATININE 0.9 MG/DL (0.55-1.30); POTASSIUM 5.1 MMOL/L (3.5-5.1); SODIUM 141 MMOL/L (136-145)
[2020-09-23 07:13] LABS: HEMATOCRIT 34.9 % (37.0-47.0); HEMOGLOBIN 11.3 G/DL (12.0-16.0); MEAN CORPUSCULAR VOLUME 83 FL (80-99); PLATELET COUNT 190 K/UL (150-450); RED CELL DISTRIBUTION WIDTH 14.9 % (11.6-14.8)
[2020-09-23 07:15] LABS: WHITE BLOOD COUNT 29.1 K/UL (4.8-10.8)
--- NOTE | 2020-09-23 07:15 | NUR ---
NURSE HAND-OFF REPORT: Latest Vital Signs: Temperature 97.0 , Pulse 84 , B/P 103 /69 , Respiratory Rate 35 , O2 SAT 61 , Bi-pap, O2 Flow Rate 15.0 . Vital Sign Comment: EKG Rhythm: Sinus Rhythm Rhythm change?: N MD Notified?: - MD Response: Latest Velazquez Fall Score: 20 Fall Risk: Low Risk Safety Measures: Call light Within Reach, Bed Alarm Zone 2, Side Rails Side Rails x3, Bed position Low and Locked. Fall Precautions: Yellow Socks Yellow Gown Door Sign Patient Fall Education Report given to NEISHA Perry.
--- NOTE | 2020-09-23 07:16 | NUR ---
NURSE NOTES: Received bedside report from NEISHA Figueroa. Pt does not open eyes spontaneously, does not follow commands, currently on cooling blanket at this time. Pt NSR on the conveyor monitor, HR between 80-90. Pt intubated, 7.5 at 24 lip line with the following vent settings: A/C rate15, 500, 100% fio2, Peep 5, O2 sat between 60-65%. Pt NPO. Pt has armstrong catheter, draining well, dark yellow urine noted. Skin intact, pressure points protected with optifoam. Pt has Right femoral TLC, no signs of infection or complication noted, dressing clean dry and intact. Pt has bilateral soft wrist restraints, no signs of injury noted from extremities. HOB at 30 degrees. Bed rails up, bed locked and in lowest position. Safety precautions maintained. Will continue to monitor.
--- NOTE | 2020-09-23 07:43 | Diagnostic Imaging Report ---
EXAM: XR Chest, 1 View CLINICAL HISTORY: F/U TECHNIQUE: Frontal view of the chest. COMPARISON: Chest radiograph September 20, 2020. FINDINGS/IMPRESSION: Endotracheal tube terminates 3.8 cm above the oswaldo. Enteric feeding tube terminates in the stomach. Patchy bilateral airspace consolidations, preferentially involving the mid and lower lung alston, improving when compared to September 20, 2020. Suspect, small effusions, unchanged. No pneumothorax. Stable cardiomegaly. Calcified aorta.
[2020-09-23] MEDS: dexAMETHasone 10mg/ml Inj IV SCH (09:03)
[2020-09-23] MEDS: Enoxaparin 60mg Inj SUBQ SCH (09:04)
[2020-09-23] MEDS: Norepinephrine 4mg/NS Premix 250 ML IV SCH ×3 (09:45→22:48)
[2020-09-23] MEDS ORDERED: Norepinephrine 4mg/NS Premix 250 ML ONE (09:47)
--- NOTE | 2020-09-23 09:50 | NUR ---
NURSE NOTES: Scheduled medications given per MD order, pt tolerated well. Will continue to monitor.
--- NOTE | 2020-09-23 10:40 | NUR ---
CASE MANAGEMENT:REVIEW 80 YR OLD FEMALE BIBA FROM HOME CC: SOB PMH: POSITIVE FOR COVID 2 WEEKS AGO SI: COVID PNEUMONIA. ACUTE RESPIRATORY FAILURE SEPSIS 99.8 112 26 106/64 85% ON 15L/NRB WBC+23.5 D-DIMER+16.9 NA-124 CA-7.4 TROPONIN(+)0.131 IS: PLACED ON BIPAP/100% IV AZITHROMYCIN IV DECADRON 1L NS BOLUS IV ROCEPHIN ALBUTEROL INH Q15 MIN LOVENOX SQ CXR BLOOD CX : ADMITTED TO ICU
--- NOTE | 2020-09-23 11:25 | NUR ---
NURSE NOTES: MD Sen at bedside to assess pt. MD updated regarding pt's status. Current ABG results reported to MD Sen. Received order from for levophed drip, fentanyl drip, and to increase Peep to 10. Will put in orders.
--- NOTE | 2020-09-23 12:00 | NUR ---
NURSE NOTES: Pt's vent settings changed by RT, PEEP increased to 10 per MD order. Insulin not given due to pt is NPO at this time. Will continue to monitor.
[2020-09-23] MEDS: fentaNYL 2500mcg/NS 250ml 250 ML IV SCH (12:21)
--- NOTE | 2020-09-23 14:35 | NUR ---
NURSE NOTES: Scheduled medications given per MD order, pt tolerated well. OGT residual checked, no residual noted. Pt's VSS, will continue to monitor.
--- NOTE | 2020-09-23 15:54 | Pulmonology Progress Note ---
Subjective ROS Limited/Unobtainable: Yes Interval Events: Intubated overnight Constitutional: Reports: no symptoms HEENT: Repors: no symptoms Respiratory: Reports: shortness of breath Cardiovascular: Reports: no symptoms Gastrointestinal/Abdominal: Reports: no symptoms Allergies: Coded Allergies: No Known Allergies (Unverified , 09/21/20) Objective Last 24 Hour Vital Signs Date Time Temp Pulse Resp B/P (MAP) Pulse Ox O2 Delivery O2 Flow Rate FiO2 09/23/20 12:21 38 104/70 Mechanical Ventilator 100 09/23/20 11:05 99 40 100 09/23/20 09:45 74/62 09/23/20 09:10 87 36 100 09/23/20 07:10 87 35 100 09/23/20 07:10 87 35 65 Mechanical Ventilator 100 09/23/20 07:00 85 35 93/64 (74) 62 09/23/20 06:45 84 35 103/69 (80) 61 09/23/20 06:30 83 34 97/77 (84) 59 09/23/20 06:15 85 33 106/64 (78) 59 09/23/20 06:00 84 33 104/63 (77) 61 09/23/20 05:45 79 30 122/73 (89) 60 09/23/20 05:41 79 33 131/73 (92) 65 09/23/20 05:32 78 29 100 09/23/20 05:30 78 31 115/76 (89) 72 09/23/20 05:27 80 25 110/77 (88) 73 09/23/20 05:22 77 28 79/51 (60) 66 09/23/20 05:18 80 26 80/53 (62) 49 09/23/20 05:15 79 28 63/49 (54) 63 09/23/20 05:13 97.0 78 24 84/59 (67) 68 09/23/20 05:10 79 31 73/46 (55) 77 09/23/20 04:00 98.2 124 24 150/97 (114) 90 09/23/20 04:00 100 09/23/20 04:00 Bi-pap 09/23/20 04:00 125 09/23/20 00:00 100 09/23/20 00:00 Bi-pap 09/23/20 00:00 98.2 107 24 144/97 (113) 95 09/23/20 00:00 116 09/22/20 23:42 113 37 97 90 09/22/20 20:00 100 09/22/20 20:00 98.0 98 30 146/89 (108) 95 09/22/20 20:00 Bi-pap 09/22/20 20:00 101 09/22/20 19:30 117 44 97 90 09/22/20 17:00 105 38 96 90 09/22/20 16:00 Bi-pap 09/22/20 16:00 100 09/22/20 16:00 98.0 108 30 142/85 (104) 98 Intake and Output 09/22/20 09/23/20 19:00 07:00 Intake Total 1025 ml 935.0 ml Output Total 600 ml 400 ml Balance 425 ml 535.0 ml Intake Oral 500 ml IV Total 525 ml 935.0 ml Output Urine Total 600 ml 400 ml General Appearance: no acute distress HEENT: atraumatic Respiratory: rhonchi - bilaterally Cardiovascular: normal rate Abdomen: soft, non tender Microbiology Date/Time Source Procedure Growth Status 09/21/20 00:45 Blood Blood Culture - Preliminary NO GROWTH AFTER 24 HOURS Resulted 09/21/20 00:20 Blood Blood Culture - Preliminary NO GROWTH AFTER 24 HOURS Resulted Laboratory Tests 09/22/20 16:00: Urine Color Pale yellow, Urine Appearance Slightly cloudy, Urine pH 8, Urine Specific [place] 1.010, Urine Protein 3+H, Urine Glucose (UA) Negative, Urine Ketones Negative, Urine Blood 1+H, Urine Nitrite Negative, Urine Bilirubin Negative, Urine Urobilinogen Normal, Urine Leukocyte Esterase Negative, Urine RBC 2-4H, Urine WBC 0-2, Urine Squamous Epithelial Cells Few, Urine Amorphous Sediment FewH, Urine Bacteria Few 09/23/20 04:05: Arterial Blood pH 7.260L, Arterial Blood Partial Pressure CO2 38.8, Arterial Blood Partial Pressure O2 40.8*L, Arterial Blood HCO3 17.0*L, Arterial Blood Oxygen Saturation 70.2*L, Arterial Blood Base Excess -9.4*L, Marck Test Positive 09/23/20 04:24: Arterial Blood pH 7.317L, Arterial Blood Partial Pressure CO2 35.1, Arterial Blood Partial Pressure O2 37.9*L, Arterial Blood HCO3 17.6*L, Arterial Blood Oxygen Saturation 70.5*L, Arterial Blood Base Excess -7.7L, Marck Test Positive 09/23/20 06:15: POC Whole Blood Glucose [Pending] 09/23/20 06:21: White Blood Count 29.1*H, Red Blood Count 4.20, Hemoglobin 11.3L, Hematocrit 34.9L, Mean Corpuscular Volume 83, Mean Corpuscular Hemoglobin 26.8L, Mean Corpuscular Hemoglobin Concent 32.3, Red Cell Distribution Width 14.9H, Platelet Count 190, Mean Platelet Volume 6.7, Neutrophils (%) (Auto) , Lymphocytes (%) (Auto) , Monocytes (%) (Auto) , Eosinophils (%) (Auto) , Basophils (%) (Auto) , Differential Total Cells Counted 100, Neutrophils % (Manual) 56, Lymphocytes % (Manual) 43, Monocytes % (Manual) 1, Eosinophils % (Manual) 0, Basophils % (Manual) 0, Band Neutrophils 0, Platelet Estimate Adequate, Platelet Morphology Normal, Polychromasia 1+, Hypochromasia 1+, Anisocytosis 1+, Sodium Level 141, Potassium Level 5.1, Chloride Level 110H, Carbon Dioxide Level 16L, Anion Gap 15, Blood Urea Nitrogen 19H, Creatinine 0.9, Estimat Glomerular Filtration Rate > 60, Glucose Level 229H, Calcium Level 7.0L, Total Bilirubin 0.7, Aspartate Amino Transf (AST/SGOT) 193H, Alanine Aminotransferase (ALT/SGPT) 141H, Alkaline Phosphatase 140H, Troponin I 1.866H, Total Protein 5.2L, Albumin 1.8L, Globulin 3.4, Albumin/Globulin Ratio 0.5L 09/23/20 07:19: Arterial Blood pH 7.121*L, Arterial Blood Partial Pressure CO2 46.7H, Arterial Blood Partial Pressure O2 39.8*L, Arterial Blood HCO3 14.9*L, Arterial Blood Oxygen Saturation 60.3*L, Arterial Blood Base Excess -14.1*L, Marck Test Positive Current Medications Medications (Trade) Dose Ordered Sig/Lui Route PRN Reason Start Time Stop Time Status Last Admin Dose Admin Chlorhexidine Gluconate (Dinora-Hex 2%) 1 applic DAILY@1999 TOPIC 09/23/20 20:00 12/22/20 19:59 Dexamethasone Sodium Phosphate (Decadron 10mg/ ml Inj) 6 mg DAILY IV 09/21/20 09:00 10/01/20 23:59 09/23/20 09:03 Dextrose (Dextrose 50%) 25 ml Q30M PRN IV Hypoglycemia 09/22/20 10:15 12/21/20 10:14 Dextrose (Dextrose 50%) 50 ml Q30M PRN IV Hypoglycemia 09/22/20 10:15 12/21/20 10:14 Enoxaparin Sodium (Lovenox) 60 mg DAILY SUBQ 09/21/20 09:00 12/20/20 08:59 09/23/20 09:04 Fentanyl Citrate 250 ml @ 0 mls/hr Q24H IV 09/23/20 11:45 09/25/20 11:44 09/23/20 12:21 Insulin Aspart (NovoLOG) BEFORE MEALS AND HS SUBQ 09/22/20 11:30 12/21/20 11:29 09/23/20 06:20 Norepinephrine Bitartrate 250 ml @ 0 mls/hr Q24H IV 09/23/20 11:45 09/26/20 11:45 09/23/20 09:45 Piperacillin Sod/ Tazobactam Sod 3.375 gm/Sodium Chloride 110 ml @ 27.5 mls/hr EVERY 8 HOURS IVPB 09/21/20 06:00 09/26/20 05:59 09/23/20 14:21 Sodium Chloride 1,000 ml @ 75 mls/hr [id number] IV 09/21/20 04:00 10/21/20 03:59 09/22/20 15:11 Assessment/Plan Assessment/Plan 1. Elevated inflammatory markers -Given her presentation, recommended CTA of chest with contrast to rule out pulmonary embolism -On Lovenox 2. Recent history of COVID-19 pneumonia with hypoxia on arrival -Patient was reported to test positive for COVID-19 2 weeks prior -On dexamethasone, and Zosyn 3. Hypoxia -Now intubated; on AC mode; 100% FiO2; PEEP 5 ->10 4. Hyperglycemia, likely steroid-induced -Monitor blood glucose - low dose insulin sliding scale 5. Elevated troponin -Recommend serial troponin 6. Leukocytosis -On broad-spectrum antibiotics -Afebrile Shakeel Sen MD Sep 23, 2020 15:54
--- NOTE | 2020-09-23 16:20 | NUR ---
NURSE NOTES: MD Traore at bedside to assess pt. Made MD Traore aware of pt's elevated troponin, received order for consult with MD Babin. Also received order for protonix IVP and to change pt's IVF to D5 1/2 NS at 75 mL/hr due to pt is currently NPO. Will put in orders.
--- NOTE | 2020-09-23 16:33 | General Progress Note ---
Subjective Allergies: Coded Allergies: No Known Allergies (Unverified , 09/21/20) Subjective ac resp failure -intuabated last night nonverabal hypotension on levophed drip Objective Last 24 Hour Vital Signs Date Time Temp Pulse Resp B/P (MAP) Pulse Ox O2 Delivery O2 Flow Rate FiO2 09/23/20 16:08 77/43 09/23/20 12:21 38 104/70 Mechanical Ventilator 100 09/23/20 11:05 99 40 100 09/23/20 09:45 74/62 09/23/20 09:10 87 36 100 09/23/20 07:10 87 35 100 09/23/20 07:10 87 35 65 Mechanical Ventilator 100 09/23/20 07:00 85 35 93/64 (74) 62 09/23/20 06:45 84 35 103/69 (80) 61 09/23/20 06:30 83 34 97/77 (84) 59 09/23/20 06:15 85 33 106/64 (78) 59 09/23/20 06:00 84 33 104/63 (77) 61 09/23/20 05:45 79 30 122/73 (89) 60 09/23/20 05:41 79 33 131/73 (92) 65 09/23/20 05:32 78 29 100 09/23/20 05:30 78 31 115/76 (89) 72 09/23/20 05:27 80 25 110/77 (88) 73 09/23/20 05:22 77 28 79/51 (60) 66 09/23/20 05:18 80 26 80/53 (62) 49 09/23/20 05:15 79 28 63/49 (54) 63 09/23/20 05:13 97.0 78 24 84/59 (67) 68 09/23/20 05:10 79 31 73/46 (55) 77 09/23/20 04:00 98.2 124 24 150/97 (114) 90 09/23/20 04:00 100 09/23/20 04:00 Bi-pap 09/23/20 04:00 125 09/23/20 00:00 100 09/23/20 00:00 Bi-pap 09/23/20 00:00 98.2 107 24 144/97 (113) 95 09/23/20 00:00 116 09/22/20 23:42 113 37 97 90 09/22/20 20:00 100 09/22/20 20:00 98.0 98 30 146/89 (108) 95 09/22/20 20:00 Bi-pap 09/22/20 20:00 101 09/22/20 19:30 117 44 97 90 09/22/20 17:00 105 38 96 90 Intake and Output 09/22/20 09/23/20 19:00 07:00 Intake Total 1025 ml 935.0 ml Output Total 600 ml 400 ml Balance 425 ml 535.0 ml Intake Oral 500 ml IV Total 525 ml 935.0 ml Output Urine Total 600 ml 400 ml Laboratory Tests 09/23/20 04:05: Arterial Blood pH 7.260L, Arterial Blood Partial Pressure CO2 38.8, Arterial Blood Partial Pressure O2 40.8*L, Arterial Blood HCO3 17.0*L, Arterial Blood Oxygen Saturation 70.2*L, Arterial Blood Base Excess -9.4*L, Marck Test Positive 09/23/20 04:24: Arterial Blood pH 7.317L, Arterial Blood Partial Pressure CO2 35.1, Arterial Blood Partial Pressure O2 37.9*L, Arterial Blood HCO3 17.6*L, Arterial Blood Oxygen Saturation 70.5*L, Arterial Blood Base Excess -7.7L, Marck Test Positive 09/23/20 06:15: POC Whole Blood Glucose [Pending] 09/23/20 06:21: White Blood Count 29.1*H, Red Blood Count 4.20, Hemoglobin 11.3L, Hematocrit 34.9L, Mean Corpuscular Volume 83, Mean Corpuscular Hemoglobin 26.8L, Mean Corpuscular Hemoglobin Concent 32.3, Red Cell Distribution Width 14.9H, Platelet Count 190, Mean Platelet Volume 6.7, Neutrophils (%) (Auto) , Lymphocytes (%) (Auto) , Monocytes (%) (Auto) , Eosinophils (%) (Auto) , Basophils (%) (Auto) , Differential Total Cells Counted 100, Neutrophils % (Manual) 56, Lymphocytes % (Manual) 43, Monocytes % (Manual) 1, Eosinophils % (Manual) 0, Basophils % (Manual) 0, Band Neutrophils 0, Platelet Estimate Adequate, Platelet Morphology Normal, Polychromasia 1+, Hypochromasia 1+, Anisocytosis 1+, Sodium Level 141, Potassium Level 5.1, Chloride Level 110H, Carbon Dioxide Level 16L, Anion Gap 15, Blood Urea Nitrogen 19H, Creatinine 0.9, Estimat Glomerular Filtration Rate > 60, Glucose Level 229H, Calcium Level 7.0L, Total Bilirubin 0.7, Aspartate Am oxana Transf (AST/SGOT) 193H, Alanine Aminotransferase (ALT/SGPT) 141H, Alkaline Phosphatase 140H, Troponin I 1.866H, Total Protein 5.2L, Albumin 1.8L, Globulin 3.4, Albumin/Globulin Ratio 0.5L 09/23/20 07:19: Arterial Blood pH 7.121*L, Arterial Blood Partial Pressure CO2 46.7H, Arterial Blood Partial Pressure O2 39.8*L, Arterial Blood HCO3 14.9*L, Arterial Blood Oxygen Saturation 60.3*L, Arterial Blood Base Excess -14.1*L, Marck Test Positive Height (Feet): 5 Height (Inches): 2.00 Weight (Pounds): 142 General Appearance: lethargic Neck: supple Cardiovascular: tachycardia Respiratory/Chest: rhonchi - bilaterally Abdomen: non tender, soft Extremities: non-tender Assessment/Plan Assessment/Plan: ac resp failure on vent , pulmonary on the case covid pna hyperglycemia hx htn positive troponin- cardio eval iv abx iv sdecadrone add ss, accue check dw pulmonary Ori Traore MD Sep 23, 2020 16:33
--- NOTE | 2020-09-23 18:08 | NUR ---
INSURANCE CLINICALS FAXED TO [facility]#[phone] fax# [phone]
--- NOTE | 2020-09-23 18:30 | NUR ---
NURSE NOTES: Oral care provided, bed bath given. Pt's gown and bed linens changed. Safety precautions maintained. Will continue to monitor.
--- NOTE | 2020-09-23 19:20 | NUR ---
NURSE HAND-OFF REPORT: Latest Vital Signs: Temperature 99.3 , Pulse 122 , B/P 132 /85 , Respiratory Rate 37 , O2 SAT 98 , Mechanical Ventilator, FiO2 100%. Vital Sign Comment: EKG Rhythm: Sinus Tachycardia Rhythm change?: N MD Notified?: - MD Response: Latest Velazquez Fall Score: 50 Fall Risk: High Risk Safety Measures: Call light Within Reach, Bed Alarm Zone 2, Side Rails Side Rails x3, Bed position Low and Locked. Fall Precautions: Yellow Socks Yellow Gown Door Sign Patient Fall Education Report given to NEISHA Gore for continuity of care. Pt stable. .
--- NOTE | 2020-09-23 19:21 | NUR ---
NURSE NOTES: received pt from Caren DRIVER., pt is AOx 0 and sedated at this time. pt is on Ventilator ETT 7.5 lip line 24cm AC 15 TV 500 Fio2 100% P10 at this time. OGT noted nothing is running right now. pt is on NPO. Starks cath noted draining well with gravity. no active bleeding. Femoral TLC right hand 22G IV site noted, intact, clean, and patent. Fentanyl is at 100mcg/hr. bilateral soft wrist restrain noted, pulse noted, skin intact. all skin intact, Optifoam for protection (sacral) applied. no BM noted. ABD large and soft, active. skin intact. call light within reach. will continue to monitor pt with plan of care. bed at the lowest position, alarmed, side rails x3 up, and locked.
[2020-09-23] MEDS ORDERED: Dyna-Hex 2% Top Sol 2oz TOPIC SCH (20:00)
[2020-09-23] MEDS: D5 1/2NS 1,000 ML IV SCH (20:11)
--- NOTE | 2020-09-23 21:14 | NUR ---
NURSE NOTES: left voice mail to Dr. Babin regarding Elevated Troponin 4.14- lactic acid 3.9. EKG done, ST with PAC. will wit for call back.
--- NOTE | 2020-09-23 21:30 | NUR ---
Pt. remains intubated on settings AC 15/ VT500/+10/100%. Respirations 30-40 labored, SpO2 dropped in the 60's ABG done results were as follows PH 7.183/CO2 40.3/PO2 39.8/ HCO3 14.8 reported to MD no changes ordered at this time. No weaning due to high PEEP/FiO2 and hemodynamic instability. Will continue to monitor.
--- NOTE | 2020-09-23 21:31 | NUR ---
NURSE NOTES: left voice mail to Dr. Vines regarding pt is desaturating at this time 63-67%, RR 30-32. newest critical ABG result notified. will wait for call back.
--- NOTE | 2020-09-23 21:59 | NUR ---
NURSE NOTES: notified Maria Eugenia Nursing Hyperion Administrator regarding elevated troponin 4.[address] Babin to call us back. but haven't heard back from Dr. Babin. Per Maria Eugenia Nursing elementary supervisor, she will contact Dr. Babin as soon as possible. will follow up.
--- NOTE | 2020-09-23 22:04 | NUR ---
NURSE NOTES: Made Dr. Traore aware pt's lactic acid is 3.9. per Dr. Traore, repeat lactic in AM. noted and will carry on.
--- NOTE | 2020-09-23 22:12 | NUR ---
NURSE NOTES: Nursing Convention Planner Maria Eugenia left voice mail to Dr. Babin regarding elevated Troponin 4.14 from 1.866. will wait for call back.
--- NOTE | 2020-09-23 22:19 | NUR ---
NURSE NOTES: per Dr. Babin " repeat the troponin level in the morning, no other order." Dr. Babin made aware pt has elevated troponin 4.14. will repeat the troponin in the morning.
[2020-09-24] VITALS (98 sets, daily range): BP systolic 59–150; BP diastolic 30–129
--- NOTE | 2020-09-24 | NUR ---
NURSE NOTES: cleaned pt, oral care given. oral suctioned. repositioned pt carefuly. no BM noted. no active bleeding noted at this time.
--- NOTE | 2020-09-24 02:00 | NUR ---
NURSE NOTES: pt is resting on the bed, O2 sat ranges from 88-93%. pt is stable condition at this time. will cotinue to monitor pt.
--- NOTE | 2020-09-24 02:05 | NUR ---
NURSE NOTES: notified Dr. Babin regarding new rythm Aflutter with PAC and variable AV block, and pt on and off to NSR to ST. no new order received. EKG done. and pt will closely monitor pt.
[2020-09-24] MEDS: Norepinephrine 4mg/NS Premix 250 ML IV SCH ×2 (03:12→06:01)
[2020-09-24] MEDS: fentaNYL 2500mcg/NS 250ml 250 ML IV SCH (03:34)
--- NOTE | 2020-09-24 04:00 | NUR ---
NURSE NOTES: Fentanyl held due to pt's low BP at this time. will continue to monitor.
--- NOTE | 2020-09-24 04:00 | NUR ---
NURSE NOTES: leophed had to deviated from the protocol to increased to max due to low BP, Dr. Bennett made aware.
--- NOTE | 2020-09-24 04:30 | NUR ---
NURSE NOTES: Made Dr. Sen aware that pt's BP is still low with max dose of Levophed. requested to received phenylephrine. Dr. Sen aware regarding low o2sat 69-74%, no new order regarding low O2sat. noted will carry on.
[2020-09-24] MEDS ORDERED: Vasopressin 100 UNITS in NS 95 ML IV SCH (05:00)
[2020-09-24] MEDS ORDERED: Phenylephrine 100 MG in D5W 240 ML IV SCH (05:00)
--- NOTE | 2020-09-24 05:04 | NUR ---
NURSE NOTES: property assessment monitor showed no pulse, but assessed pt's actual pulse and able to feel spontaneous pulse. and rhythm showed within less than 15 seconds. paper in the chart.
--- NOTE | 2020-09-24 05:10 | NUR ---
NURSE NOTES: Dr. Vines made aware pt's low BP, with all drips. added pitressin drip to maintain stable BP. will continue to monitor pt.
[2020-09-24 05:43] LABS: CALCIUM 6.4 MG/DL (8.5-10.1); CREATININE 2.5 MG/DL (0.55-1.30)
[2020-09-24 05:49] LABS: HEMATOCRIT 35.5 % (37.0-47.0); MEAN CORPUSCULAR VOLUME 87 FL (80-99); PLATELET COUNT 66 K/UL (150-450); RED CELL DISTRIBUTION WIDTH 15.7 % (11.6-14.8)
[2020-09-24 05:58] LABS: WHITE BLOOD COUNT 28.5 K/UL (4.8-10.8)
[2020-09-24 06:16] LABS: POTASSIUM 7.3 MMOL/L (3.5-5.1)
--- NOTE | 2020-09-24 06:25 | NUR ---
NURSE NOTES: Left Voice mail to Dr. Rahman regarding critical potassium level (7.3) and plt 66 BUN 48, creat 2.5. lactic acid 8.2. will wait for call back.
[2020-09-24] MEDS: Piperacillin/Tazobactam 3.375 GM in NS 110 ML IVPB SCH (06:26)
[2020-09-24] MEDS: NovoLOG Insulin Flexpen SUBQ SCH (06:27)
--- NOTE | 2020-09-24 06:28 | NUR ---
NURSE NOTES: Notified Dr. Traore trending down WBC 28.5. will wait for call back.
--- NOTE | 2020-09-24 06:30 | NUR ---
NURSE NOTES: no new order for trending down WBC from Dr. Traore. noted.
--- NOTE | 2020-09-24 07:20 | NUR ---
NURSE HAND-OFF REPORT: Need to follow up:low BP, low O2sat, CTA consent, low urine output, high potassium 7.3, high lactic acid, high troponin, high BUN, high WBC, and elevated creat. Latest Vital Signs: Temperature 98.0 , Pulse 124 , B/P 117 /52 , Respiratory Rate 28 , O2 SAT 72 , Mechanical Ventilator, O2 Flow Rate . Vital Sign Comment: [low O2 sat,] EKG Rhythm: Atrial Flutter Rhythm change?: [employer] Notified?: Yoanna barrow MD Response: no new order received. need to follow up. Latest Velazquez Fall Score: 50 Fall Risk: High Risk Safety Measures: Call light Within Reach, Bed Alarm Zone 2, Side Rails Side Rails x3, Bed position Low and Locked. Fall Precautions: Yellow Socks Yellow Gown Door Sign Patient Fall Education Report given to [Buzz RN].
--- NOTE | 2020-09-24 08:26 | Consultation ---
Consult Note Consult Note I am asked to evaluate the patient at the request of Dr. León estrada K and renal failure Patient seen in ICU. Examined. Data reviewed. Discussed with NEISHA Gerber. Day 3 of hospitalization here at [facility]. Patient is intubated. On 3 pressors. Mottled extremities. Low urine output. ER note: This is a 80-year-old [place] Citizen-speaking female with a history of hypertension. She presents with complaint of shortness of breath. She tested positive for Covid 2 weeks ago. Was recuperating at home but symptoms worsen in the last couple days. She developed shortness of breath and worsening symptom today. She had to call 911 because she could not breathe. Per EMS, she was 84% on room air. She was 90% on a nonrebreather. Patient complaining of tightness in her chest. Has cough but nonproductive nature. Worse with exertion. Better with rest. No nausea vomiting or diarrhea. 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
[2020-09-24] MEDS ORDERED: Sodium Bicarbonate 50ml Carp IV SCH (08:30)
[2020-09-24] MEDS ORDERED: Pantoprazole Inj IVP SCH ×2 (09:00→21:00)
[2020-09-24] MEDS: dexAMETHasone 10mg/ml Inj IV SCH (09:18)
[2020-09-24] MEDS: D5 1/2NS 1,000 ML IV SCH (09:21)
[2020-09-24] MEDS: Enoxaparin 60mg Inj SUBQ SCH (09:23)
--- NOTE | 2020-09-24 09:50 | Cardiac Electrophysiology PN ---
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 with Troponin peak of 4 Septic shock maxed ot on 3 pressors Covid PNA on 100% Fio2 and PEEP 10 Atrial flutter with RVR Hyperkalemia and renal failure per Dr Hernandez Dictated #[id number] Objective Last 24 Hour Vital Signs Date Time Temp Pulse Resp B/P (MAP) Pulse Ox O2 Delivery O2 Flow Rate FiO2 09/24/20 09:00 124 24 101/54 (70) 09/24/20 08:00 124 24 101/54 (70) 09/24/20 08:00 100 09/24/20 08:00 156 09/24/20 08:00 Mechanical Ventilator 09/24/20 07:35 124 24 101/54 (70) 09/24/20 07:30 124 24 111/52 (71) 09/24/20 07:25 124 24 114/61 (78) 09/24/20 07:20 124 24 105/55 (72) 09/24/20 07:15 124 24 107/54 (71) 09/24/20 07:10 124 24 114/60 (78) 09/24/20 07:05 124 24 109/59 (76) 09/24/20 07:00 124 24 109/54 (72) 09/24/20 06:55 124 24 108/60 (76) 09/24/20 06:50 124 24 108/65 (79) 09/24/20 06:45 124 24 113/60 (77) 09/24/20 06:45 124 24 113/60 (77) 09/24/20 06:40 124 23 114/53 (73) 09/24/20 06:40 124 23 114/53 (73) 09/24/20 06:35 124 23 114/60 (78) 09/24/20 06:35 124 23 114/60 (78) 09/24/20 06:30 124 23 112/54 (73) 09/24/20 06:30 124 23 112/54 (73) 09/24/20 06:25 125 23 106/55 (72) 91 09/24/20 06:25 125 23 106/55 (72) 91 09/24/20 06:20 124 23 102/54 (70) 09/24/20 06:20 124 23 102/54 (70) 09/24/20 06:15 124 22 117/72 (87) 57 09/24/20 06:15 124 22 117/72 (87) 57 09/24/20 06:10 125 23 116/58 (77) 48 09/24/20 06:10 125 23 116/58 (77) 48 09/24/20 06:05 125 23 117/52 (73) 46 09/24/20 06:05 125 23 117/52 (73) 46 09/24/20 06:01 117/52 09/24/20 06:00 124 23 123/58 (79) 44 09/24/20 06:00 124 23 123/58 (79) 44 09/24/20 05:55 124 20 138/77 (97) 73 09/24/20 05:50 126 22 117/66 (83) 45 09/24/20 05:45 126 21 113/62 (79) 37 09/24/20 05:30 126 21 78/45 (56) 09/24/20 05:26 124 28 100 09/24/20 05:15 140 22 70/31 (44) 09/24/20 05:14 142 22 125/56 (79) 09/24/20 05:05 110 17 60/33 (42) 09/24/20 05:00 113 17 64/33 (43) 09/24/20 05:00 107 64/33 09/24/20 04:58 106 13 63/39 (47) 98 09/24/20 04:51 112 17 63/31 (42) 73 09/24/20 04:45 109 17 59/33 (42) 68 09/24/20 04:40 112 17 72/30 (44) 74 09/24/20 04:30 113 18 72/30 (44) 71 09/24/20 04:15 116 19 80/30 (47) 66 09/24/20 04:00 Mechanical Ventilator 09/24/20 04:00 156 09/24/20 04:00 100 09/24/20 04:00 20 60/35 Mechanical Ventilator 100 09/24/20 04:00 118 22 60/35 (43) 61 09/24/20 03:45 121 29 92/58 (69) 59 09/24/20 03:34 34 92/51 Mechanical Ventilator 100 09/24/20 03:33 33 90/58 Mechanical Ventilator 100 09/24/20 03:30 117 33 90/58 (69) 69 09/24/20 03:15 114 26 92/51 (65) 84 09/24/20 03:12 98 24 88/60 (69) 94 09/24/20 03:12 75/47 09/24/20 03:00 99 24 66/32 (43) 92 09/24/20 02:45 115 26 89/50 (63) 82 09/24/20 02:45 25 89/50 Mechanical Ventilator 100 09/24/20 02:42 115 30 100 09/24/20 02:30 114 28 91/65 (74) 89 09/24/20 02:15 115 26 120/65 (83) 85 09/24/20 02:00 114 23 117/62 (80) 87 09/24/20 01:45 27 117/62 Mechanical Ventilator 100 09/24/20 01:00 115 28 113/51 (71) 72 09/24/20 00:58 112 36 100 09/24/20 00:45 115 26 110/51 (70) 79 09/24/20 00:45 27 113/51 Mechanical Ventilator 100 09/24/20 00:30 115 29 105/56 (72) 68 09/24/20 00:15 118 25 101/67 (78) 70 09/24/20 00:00 98.0 113 26 99/56 (70) 76 09/24/20 00:00 114 09/24/20 00:00 Mechanical Ventilator 09/24/20 00:00 100 09/23/20 23:45 114 30 82/54 (63) 75 09/23/20 23:45 27 90/55 Mechanical Ventilator 100 09/23/20 23:40 114 28 81/52 (62) 74 09/23/20 23:35 114 30 82/54 (63) 75 09/23/20 23:30 114 27 81/49 (60) 74 09/23/20 23:00 114 35 100 09/23/20 23:00 108 27 93/53 (66) 77 09/23/20 22:48 93/60 09/23/20 22:45 25 93/55 Mechanical Ventilator 100 09/23/20 22:15 98 23 134/90 (105) 73 09/23/20 22:00 108 27 154/130 (138) 70 09/23/20 21:45 27 137/80 Mechanical Ventilator 100 09/23/20 21:45 132 29 137/80 (99) 69 09/23/20 21:30 111 32 143/78 (99) 64 09/23/20 21:30 30 143/78 Mechanical Ventilator 100 09/23/20 21:15 116 34 139/55 (83) 63 09/23/20 21:15 33 139/55 Mechanical Ventilator 100 09/23/20 21:10 122 37 100 09/23/20 21:00 35 144/71 Mechanical Ventilator 100 09/23/20 21:00 113 36 144/71 (95) 63 09/23/20 20:45 117 39 142/90 (107) 67 09/23/20 20:45 37 142/90 Mechanical Ventilator 100 09/23/20 20:30 120 41 158/105 (122) 68 09/23/20 20:30 39 158/105 Mechanical Ventilator 100 09/23/20 20:15 120 43 144/79 (100) 70 09/23/20 20:15 42 144/79 Mechanical Ventilator 100 09/23/20 20:00 Mechanical Ventilator 09/23/20 20:00 98.4 108 37 128/67 (87) 96 09/23/20 20:00 122 09/23/20 20:00 44 128/67 Mechanical Ventilator 100 09/23/20 20:00 100 09/23/20 19:45 41 149/63 Mechanical Ventilator 100 09/23/20 19:30 43 167/87 Mechanical Ventilator 100 09/23/20 19:00 115 36 148/116 (127) 98 09/23/20 19:00 29 132/85 Mechanical Ventilator 100 09/23/20 18:56 125 42 100 09/23/20 18:45 36 125/88 Mechanical Ventilator 100 09/23/20 18:30 43 127/91 Mechanical Ventilator 100 09/23/20 18:15 44 154/100 Mechanical Ventilator 100 09/23/20 18:00 121 44 145/91 (109) 90 09/23/20 18:00 44 145/91 Mechanical Ventilator 100 09/23/20 17:00 95 33 100 09/23/20 17:00 26 134/80 Mechanical Ventilator 100 09/23/20 17:00 93 30 116/72 (87) 100 09/23/20 16:08 77/43 09/23/20 16:00 25 119/71 Mechanical Ventilator 100 09/23/20 16:00 99.3 96 30 105/64 (78) 99 09/23/20 16:00 100 09/23/20 16:00 Mechanical Ventilator 09/23/20 15:09 95 09/23/20 15:00 91 31 100 09/23/20 15:00 29 109/61 Mechanical Ventilator 100 09/23/20 15:00 95 29 103/64 (77) 100 09/23/20 14:00 96 26 99/59 (72) 100 09/23/20 14:00 29 96/62 Mechanical Ventilator 100 09/23/20 13:55 25 103/64 Mechanical Ventilator 100 09/23/20 13:40 28 100/58 Mechanical Ventilator 100 09/23/20 13:25 35 179/89 Mechanical Ventilator 100 09/23/20 13:10 44 148/68 Mechanical Ventilator 100 09/23/20 13:00 107 46 148/68 (94) 100 09/23/20 13:00 97 31 100 09/23/20 12:55 37 115/68 Mechanical Ventilator 100 09/23/20 12:40 45 109/80 Mechanical Ventilator 100 09/23/20 12:25 44 117/58 Mechanical Ventilator 100 09/23/20 12:21 38 104/70 Mechanical Ventilator 100 09/23/20 12:00 Mechanical Ventilator 09/23/20 12:00 100 09/23/20 12:00 98.5 96 42 115/68 (84) 97 09/23/20 11:44 95 09/23/20 11:05 99 40 100 09/23/20 11:00 99 40 136/78 (97) 72 09/23/20 10:00 79 37 77/48 (58) 75 Intake and Output 09/23/20 09/24/20 19:00 07:00 Intake Total 1491.625 ml 1889.05528 ml Output Total 400 ml 360 ml Balance 1091.625 ml 1529.32717 ml IV Total 1491.625 ml 1889.24247 ml Output Urine Total 400 ml 360 ml # Bowel Movements 1 Laboratory Tests Test 09/23/20 20:12 09/23/20 21:14 09/24/20 04:30 09/24/20 06:22 Lactic Acid Level 3.90 mmol/L (0.4-2.0) H 8.20 mmol/L (0.4-2.0) H Troponin I 4.140 ng/mL (0.000-0.056) 3.951 ng/mL (0.000-0.056) Arterial Blood pH 7.183 (7.350-7.450) Arterial Blood Partial Pressure CO2 40.3 mmHg (35.0-45.0) Arterial Blood Partial Pressure O2 39.8 mmHg (75.0-100.0) Arterial Blood HCO3 14.8 mmol/L (22.0-26.0) *L Arterial Blood Oxygen Saturation 63.1 % (95-100) *L Arterial Blood Base Excess -12.8 (-2-2) *L Marck Test Positive White Blood Count 28.5 K/UL (4.8-10.8) *H Red Blood Count 4.10 M/UL (4.20-5.40) L Hemoglobin 11.0 G/DL (12.0-16.0) L Hematocrit 35.5 % (37.0-47.0) L Mean Corpuscular Volume 87 FL (80-99) Mean Corpuscular Hemoglobin 26.8 PG (27.0-31.0) L Mean Corpuscular Hemoglobin Concent 30.9 G/DL (32.0-36.0) L Red Cell Distribution Width 15.7 % (11.6-14.8) H Platelet Count 66 K/UL (150-450) #L Mean Platelet Volume 9.2 FL (6.5-10.1) Neutrophils (%) (Auto) % (45.0-75.0) Lymphocytes (%) (Auto) % (20.0-45.0) Monocytes (%) (Auto) % (1.0-10.0) Eosinophils (%) (Auto) % (0.0-3.0) Basophils (%) (Auto) % (0.0-2.0) Differential Total Cells Counted 100 Neutrophils % (Manual) 48 % (45-75) Lymphocytes % (Manual) 51 % (20-45) H Monocytes % (Manual) 1 % (1-10) Eosinophils % (Manual) 0 % (0-3) Basophils % (Manual) 0 % (0-2) Band Neutrophils 0 % (0-8) Platelet Estimate Decreased L Platelet Morphology Normal Hypochromasia 1+ Anisocytosis 1+ Haptoglobin Pending Sodium Level 142 MMOL/L (136-145) Potassium Level 7.3 MMOL/L (3.5-5.1) *H Chloride Level 113 MMOL/L (98-107) H Carbon Dioxide Level 13 MMOL/L (21-32) L Anion Gap 16 mmol/L (5-15) H Blood Urea Nitrogen 48 mg/dL (7-18) H Creatinine 2.5 MG/DL (0.55-1.30) #H Estimat Glomerular Filtration Rate 18.6 mL/min (>60) Glucose Level 195 MG/DL (74-106) H Calcium Level 6.4 MG/DL (8.5-10.1) L Lactate Dehydrogenase > 4000 U/L (81-234) H POC Whole Blood Glucose 171 MG/DL (74-106) H Test 09/24/20 08:37 Arterial Blood pH 6.828 (7.350-7.450) Arterial Blood Partial Pressure CO2 49.5 mmHg (35.0-45.0) H Arterial Blood Partial Pressure O2 52.4 mmHg (75.0-100.0) L Arterial Blood HCO3 8.0 mmol/L (22.0-26.0) *L Arterial Blood Oxygen Saturation 69.4 % (95-100) *L Arterial Blood Base Excess -25.8 (-2-2) *L Marck Test Positive Bradly Babin MD Sep 24, 2020 09:50
--- NOTE | 2020-09-24 10:42 | General Progress Note ---
Subjective Allergies: Coded Allergies: No Known Allergies (Unverified , 09/21/20) Subjective ac resp failure -intuabated last night nonverabal hypotension on levophed drip ac renal failure nephro on case hyperkalemia Objective Last 24 Hour Vital Signs Date Time Temp Pulse Resp B/P (MAP) Pulse Ox O2 Delivery O2 Flow Rate FiO2 09/24/20 10:00 120 25 100/53 (69) 88 09/24/20 09:15 122 26 95/53 (67) 09/24/20 09:10 125 25 109/56 (73) 09/24/20 09:05 119 22 113/61 (78) 88 09/24/20 09:00 124 24 101/54 (70) 09/24/20 09:00 121 25 94/57 (69) 09/24/20 08:55 120 25 92/54 (67) 09/24/20 08:50 120 25 102/57 (72) 09/24/20 08:45 119 25 94/54 (67) 09/24/20 08:40 114 25 81/48 (59) 09/24/20 08:35 118 25 101/53 (69) 09/24/20 08:34 111 25 108/64 (79) 09/24/20 08:30 119 25 85/45 (58) 09/24/20 08:25 120 25 96/50 (65) 09/24/20 08:20 118 25 93/50 (64) 09/24/20 08:20 118 25 93/50 (64) 09/24/20 08:15 112 25 87/50 (62) 09/24/20 08:15 112 25 87/50 (62) 09/24/20 08:13 110 25 71/42 (52) 87 09/24/20 08:13 110 25 71/42 (52) 87 09/24/20 08:12 111 24 77/38 (51) 86 09/24/20 08:12 111 24 77/38 (51) 86 09/24/20 08:10 114 25 72/47 (55) 09/24/20 08:10 114 25 72/47 (55) 09/24/20 08:05 123 25 92/49 (63) 09/24/20 08:05 123 25 92/49 (63) 09/24/20 08:00 123 25 101/53 (69) 09/24/20 08:00 124 24 101/54 (70) 09/24/20 08:00 100 09/24/20 08:00 156 09/24/20 08:00 Mechanical Ventilator 09/24/20 08:00 123 25 101/53 (69) 09/24/20 07:55 123 25 104/52 (69) 09/24/20 07:50 123 25 102/53 (69) 09/24/20 07:45 123 25 98/52 (67) 09/24/20 07:40 123 24 105/57 (73) 30 09/24/20 07:35 124 24 101/54 (70) 09/24/20 07:35 124 24 101/54 (70) 09/24/20 07:30 124 24 111/52 (71) 09/24/20 07:30 111 25 100 09/24/20 07:30 124 24 111/52 (71) 09/24/20 07:25 124 24 114/61 (78) 09/24/20 07:25 124 24 114/61 (78) 09/24/20 07:20 124 24 105/55 (72) 09/24/20 07:20 124 24 105/55 (72) 09/24/20 07:15 124 24 107/54 (71) 09/24/20 07:15 124 24 107/54 (71) 09/24/20 07:10 124 24 114/60 (78) 09/24/20 07:10 124 24 114/60 (78) 09/24/20 07:05 124 24 109/59 (76) 09/24/20 07:05 124 24 109/59 (76) 09/24/20 07:00 124 24 109/54 (72) 09/24/20 07:00 124 24 109/54 (72) 09/24/20 06:55 124 24 108/60 (76) 09/24/20 06:50 124 24 108/65 (79) 09/24/20 06:45 124 24 113/60 (77) 09/24/20 06:45 124 24 113/60 (77) 09/24/20 06:40 124 23 114/53 (73) 09/24/20 06:40 124 23 114/53 (73) 09/24/20 06:35 124 23 114/60 (78) 09/24/20 06:35 124 23 114/60 (78) 09/24/20 06:30 124 23 112/54 (73) 09/24/20 06:30 124 23 112/54 (73) 09/24/20 06:25 125 23 106/55 (72) 91 09/24/20 06:25 125 23 106/55 (72) 91 09/24/20 06:20 124 23 102/54 (70) 09/24/20 06:20 124 23 102/54 (70) 09/24/20 06:15 124 22 117/72 (87) 57 09/24/20 06:15 124 22 117/72 (87) 57 09/24/20 06:10 125 23 116/58 (77) 48 09/24/20 06:10 125 23 116/58 (77) 48 09/24/20 06:05 125 23 117/52 (73) 46 09/24/20 06:05 125 23 117/52 (73) 46 09/24/20 06:01 117/52 09/24/20 06:00 124 23 123/58 (79) 44 09/24/20 06:00 124 23 123/58 (79) 44 09/24/20 05:55 124 20 138/77 (97) 73 09/24/20 05:50 126 22 117/66 (83) 45 09/24/20 05:45 126 21 113/62 (79) 37 09/24/20 05:30 126 21 78/45 (56) 09/24/20 05:26 124 28 100 09/24/20 05:15 140 22 70/31 (44) 09/24/20 05:14 142 22 125/56 (79) 09/24/20 05:05 110 17 60/33 (42) 09/24/20 05:00 113 17 64/33 (43) 09/24/20 05:00 107 64/33 09/24/20 04:58 106 13 63/39 (47) 98 09/24/20 04:51 112 17 63/31 (42) 73 09/24/20 04:45 109 17 59/33 (42) 68 09/24/20 04:40 112 17 72/30 (44) 74 09/24/20 04:30 113 18 72/30 (44) 71 09/24/20 04:15 116 19 80/30 (47) 66 09/24/20 04:00 Mechanical Ventilator 09/24/20 04:00 156 09/24/20 04:00 100 09/24/20 04:00 20 60/35 Mechanical Ventilator 100 09/24/20 04:00 118 22 60/35 (43) 61 09/24/20 04:00 118 22 95/39 (57) 61 09/24/20 03:45 121 29 92/58 (69) 59 09/24/20 03:45 121 29 90/58 (69) 59 09/24/20 03:34 34 92/51 Mechanical Ventilator 100 09/24/20 03:33 33 90/58 Mechanical Ventilator 100 09/24/20 03:30 117 33 90/58 (69) 69 09/24/20 03:30 117 33 92/51 (65) 69 09/24/20 03:15 114 26 92/51 (65) 84 09/24/20 03:15 114 26 111/50 (70) 84 09/24/20 03:12 98 24 88/60 (69) 94 09/24/20 03:12 75/47 09/24/20 03:05 98 24 75/47 (56) 94 09/24/20 03:00 99 24 66/32 (43) 92 09/24/20 03:00 99 24 66/32 (43) 92 09/24/20 02:45 115 26 89/50 (63) 82 09/24/20 02:45 25 89/50 Mechanical Ventilator 100 09/24/20 02:45 115 26 99/58 (72) 82 09/24/20 02:42 115 30 100 09/24/20 02:30 114 28 91/65 (74) 89 09/24/20 02:30 114 28 91/65 (74) 89 09/24/20 02:15 115 26 120/65 (83) 85 09/24/20 02:15 115 26 120/65 (83) 85 09/24/20 02:00 114 23 117/62 (80) 87 09/24/20 02:00 114 23 117/62 (80) 87 09/24/20 01:45 114 28 120/62 (81) 90 09/24/20 01:45 27 117/62 Mechanical Ventilator 100 09/24/20 01:38 112 24 104/57 (73) 90 09/24/20 01:30 123 20 75/50 (58) 88 09/24/20 01:15 116 31 100/55 (70) 81 09/24/20 01:00 115 28 113/51 (71) 72 09/24/20 01:00 115 28 113/51 (71) 72 09/24/20 00:58 112 36 100 09/24/20 00:45 115 26 110/51 (70) 79 09/24/20 00:45 27 113/51 Mechanical Ventilator 100 09/24/20 00:45 115 26 110/51 (70) 79 09/24/20 00:30 115 29 105/56 (72) 68 09/24/20 00:30 115 29 105/56 (72) 68 09/24/20 00:15 118 25 101/67 (78) 70 09/24/20 00:15 118 25 101/67 (78) 70 09/24/20 00:00 113 26 99/56 (70) 76 09/24/20 00:00 98.0 113 26 99/56 (70) 76 09/24/20 00:00 114 09/24/20 00:00 Mechanical Ventilator 09/24/20 00:00 100 09/23/20 23:45 114 30 82/54 (63) 75 09/23/20 23:45 27 90/55 Mechanical Ventilator 100 09/23/20 23:40 114 28 81/52 (62) 74 09/23/20 23:35 114 30 82/54 (63) 75 09/23/20 23:30 114 27 81/49 (60) 74 09/23/20 23:00 114 35 100 09/23/20 23:00 108 27 93/53 (66) 77 09/23/20 22:48 93/60 09/23/20 22:45 25 93/55 Mechanical Ventilator 100 09/23/20 22:15 98 23 134/90 (105) 73 09/23/20 22:00 108 27 154/130 (138) 70 09/23/20 21:45 27 137/80 Mechanical Ventilator 100 09/23/20 21:45 132 29 137/80 (99) 69 09/23/20 21:30 111 32 143/78 (99) 64 09/23/20 21:30 30 143/78 Mechanical Ventilator 100 09/23/20 21:15 116 34 139/55 (83) 63 09/23/20 21:15 33 139/55 Mechanical Ventilator 100 09/23/20 21:10 122 37 100 09/23/20 21:00 35 144/71 Mechanical Ventilator 100 09/23/20 21:00 113 36 144/71 (95) 63 09/23/20 20:45 117 39 142/90 (107) 67 09/23/20 20:45 37 142/90 Mechanical Ventilator 100 09/23/20 20:30 120 41 158/105 (122) 68 09/23/20 20:30 39 158/105 Mechanical Ventilator 100 09/23/20 20:15 120 43 144/79 (100) 70 09/23/20 20:15 42 144/79 Mechanical Ventilator 100 09/23/20 20:00 Mechanical Ventilator 09/23/20 20:00 98.4 108 37 128/67 (87) 96 09/23/20 20:00 122 09/23/20 20:00 44 128/67 Mechanical Ventilator 100 09/23/20 20:00 100 09/23/20 19:45 41 149/63 Mechanical Ventilator 100 09/23/20 19:30 43 167/87 Mechanical Ventilator 100 09/23/20 19:00 115 36 148/116 (127) 98 09/23/20 19:00 29 132/85 Mechanical Ventilator 100 09/23/20 18:56 125 42 100 09/23/20 18:45 36 125/88 Mechanical Ventilator 100 09/23/20 18:30 43 127/91 Mechanical Ventilator 100 09/23/20 18:15 44 154/100 Mechanical Ventilator 100 09/23/20 18:00 121 44 145/91 (109) 90 09/23/20 18:00 44 145/91 Mechanical Ventilator 100 09/23/20 17:00 95 33 100 09/23/20 17:00 26 134/80 Mechanical Ventilator 100 09/23/20 17:00 93 30 116/72 (87) 100 09/23/20 16:08 77/43 09/23/20 16:00 25 119/71 Mechanical Ventilator 100 09/23/20 16:00 99.3 96 30 105/64 (78) 99 09/23/20 16:00 100 09/23/20 16:00 Mechanical Ventilator 09/23/20 15:09 95 09/23/20 15:00 91 31 100 09/23/20 15:00 29 109/61 Mechanical Ventilator 100 09/23/20 15:00 95 29 103/64 (77) 100 09/23/20 14:00 96 26 99/59 (72) 100 09/23/20 14:00 29 96/62 Mechanical Ventilator 100 09/23/20 13:55 25 103/64 Mechanical Ventilator 100 09/23/20 13:40 28 100/58 Mechanical Ventilator 100 09/23/20 13:25 35 179/89 Mechanical Ventilator 100 09/23/20 13:10 44 148/68 Mechanical Ventilator 100 09/23/20 13:00 107 46 148/68 (94) 100 09/23/20 13:00 97 31 100 09/23/20 12:55 37 115/68 Mechanical Ventilator 100 09/23/20 12:40 45 109/80 Mechanical Ventilator 100 09/23/20 12:25 44 117/58 Mechanical Ventilator 100 09/23/20 12:21 38 104/70 Mechanical Ventilator 100 09/23/20 12:00 Mechanical Ventilator 09/23/20 12:00 100 09/23/20 12:00 98.5 96 42 115/68 (84) 97 09/23/20 11:44 95 09/23/20 11:05 99 40 100 09/23/20 11:00 99 40 136/78 (97) 72 Intake and Output 09/23/20 09/24/20 19:00 07:00 Intake Total 1491.625 ml 1889.92651 ml Output Total 400 ml 360 ml Balance 1091.625 ml 1529.65789 ml IV Total 1491.625 ml 1889.94499 ml Output Urine Total 400 ml 360 ml # Bowel Movements 1 Laboratory Tests 09/23/20 20:12: Lactic Acid Level 3.90H, Troponin I 4.140H 09/23/20 21:14: Arterial Blood pH 7.183*L, Arterial Blood Partial Pressure CO2 40.3, Arterial Blood Partial Pressure O2 39.8*L, Arterial Blood HCO3 14.8*L, Arterial Blood Oxygen Saturation 63.1*L, Arterial Blood Base Excess -12.8*L, Marck Test Positive 09/24/20 04:30: Lactic Acid Level 8.20H, Troponin I 3.951H, White Blood Count 28.5*H, Red Blood Count 4.10L, Hemoglobin 11.0L, Hematocrit 35.5L, Mean Corpuscular Volume 87, Mean Corpuscular Hemoglobin 26.8L, Mean Corpuscular Hemoglobin Concent 30.9L, Red Cell Distribution Width 15.7H, Platelet Count 66#L, Mean Platelet Volume 9.2, Neutrophils (%) (Auto) , Lymphocytes (%) (Auto) , Monocytes (%) (Auto) , Eosinophils (%) (Auto) , Basophils (%) (Auto) , Differential Total Cells Counted 100, Neutrophils % (Manual) 48, Lymphocytes % (Manual) 51H, Monocytes % (Manual) 1, Eosinophils % (Manual) 0, Basophils % (Manual) 0, Band Neutrophils 0, Platelet Estimate DecreasedL, Platelet Morphology Normal, Hypochromasia 1+, Anisocytosis 1+, Haptoglobin [Pending], Sodium Level 142, Potassium Level 7.3*H, Chloride Level 113H, Carbon Dioxide Level 13L, Anion Gap 16H, Blood Urea Nitrogen 48H, Creatinine 2.5#H, Estimat Glomerular Filtration Rate 18.6, Glucose Level 195H, Calcium Level 6.4L, Lactate Dehydrogenase > 4000H 09/24/20 06:22: POC Whole Blood Glucose 171H 09/24/20 08:37: Arterial Blood pH 6.828*L, Arterial Blood Partial Pressure CO2 49.5H, Arterial Blood Partial Pressure O2 52.4L, Arterial Blood HCO3 8.0*L, Arterial Blood Oxygen Saturation 69.4*L, Arterial Blood Base Excess -25.8*L, Marck Test Positive Height (Feet): 5 Height (Inches): 2.00 Weight (Pounds): 142 General Appearance: severe distress Neck: supple Cardiovascular: tachycardia Respiratory/Chest: crackles/rales, rhonchi - bilaterally Abdomen: non tender, soft Extremities: non-tender Edema: trace edema Assessment/Plan Assessment/Plan: ac resp failure on vent , pulmonary on the case covid pna hyperglycemia hx htn positive troponin- cardio eval hyperkalemia ac renal failure iv abx iv decadrone add ss, accue check dw pulmonary dw son zohra exlained prognosis is poor, multiorgan failure he requested to cont tx at this point Ori Traore MD Sep 24, 2020 10:42
--- NOTE | 2020-09-24 11:00 | NUR ---
NURSE NOTES: New levophed removed from pyxis and administered by assigned nurse, unable to scan at this moment. Blood pressure is low, patient is hemodynamically unstable. Patient is on max levophed.
--- NOTE | 2020-09-24 11:13 | NUR ---
RESPIRATORY NOTE: [place] goff called. Pt in asystole. I began compressions. Pt remained on ventilator per being Covid +. Dr. Mahajan arrived. ROSC was achieved at 1113. Addendum: 09/24/20 at 1516 by Kelin Hill, RT [place] Goff called at 1110.
--- NOTE | 2020-09-24 11:30 | Emergency Room Report ---
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 Patient with his prior history of coronavirus infection, massive acidosis. Patient had been given medications as per code sheet prior to my arrival with return of spontaneous circulation after several rounds of epi and bicarb. Patient had adequate blood pressure was on pressors. Adequate blood glucose. Care was returned to the primary team. Medical Decision Making Diagnostic Impression: Primary Impression: Acute respiratory failure with hypoxia Additional Impressions: Pneumonia due to COVID-19 virus Respiratory failure requiring intubation Sepsis Last Vital Signs Date Time Temp Pulse Resp B/P (MAP) Pulse Ox O2 Delivery O2 Flow Rate FiO2 09/24/20 10:00 120 25 100/53 (69) 88 09/24/20 08:00 100 09/24/20 08:00 Mechanical Ventilator 09/24/20 00:00 98.0 09/21/20 01:40 15.0 Disposition: ADMITTED INPATIENT Condition: Critical Referrals: NOT CHOSEN IPA/,REFERRING (PCP) Adonay Mahajan MD Sep 24, 2020 11:30
--- NOTE | 2020-09-24 11:47 | Consultation ---
DATE OF CONSULTATION: 09/24/2020 CARDIOLOGY CONSULTATION CONSULTING PHYSICIAN: Bradly Babin MD. REFERRING PHYSICIAN: Ori Traore MD. REASON FOR CONSULTATION: Septic shock, hypotension, and myocardial infarction. HISTORY OF PRESENT ILLNESS: The patient is a 80-year-old lady with history of hypertension presented to the emergency room for increasing shortness of breath. The patient was tested positive for COVID-19 two weeks ago. The patient is recovering at home but her symptoms worsened in the last few days. The patient was hypoxic on arrival, O2 saturation improved 90% on nonrebreather. The patient also had tightness in her chest. The patient had markedly elevated D-dimer, hypocalcemia, elevated troponin, elevated BNP. At the time of my evaluation, the patient has agonal breathing, maxed out on three pressors including Levophed, phenylephrine, and vasopressin. Over night, she also developed atrial flutter with rate of 120s. REVIEW OF SYSTEMS: Cannot be obtained. PAST MEDICAL HISTORY: Hypertension. MEDICATIONS: Per reconciliation. ALLERGIES: No known drug allergies. FAMILY HISTORY: Unknown. SOCIAL HISTORY: The patient lives at home. No history of drug use. PHYSICAL EXAMINATION: VITAL SIGNS: Blood pressure of 101/54, pulse 124, respirations 20, and she is afebrile. HEAD AND NECK: She is orally intubated. LUNGS: Coarse rhonchi. CARDIOVASCULAR: Irregular S1 and S2 and tachycardic. ABDOMEN: Soft. EXTREMITIES: Cyanotic toes. LABORATORY AND DIAGNOSTIC DATA: Labs show white count 28.5, hemoglobin 11, hematocrit 35.5, platelet count is 66. Sodium 142, potassium 7.3, BUN of 48, creatinine 2.5, and glucose of 195. LDH is more than 4000. 3.95 with peak troponin 4.14. ASSESSMENT AND PLAN: 1. Non-ST elevation myocardial infarction with troponin of 4.14. This also could be due to acute COVID myocarditis. Unfortunately, the patient cannot get aspirin in view of thrombocytopenia and cannot get beta-laura in view of being hypotensive on three pressors. We will get an echocardiogram to evaluate for ejection fraction and wall motion abnormality. 2. Septic shock. The patient is already maxed out on Levophed, phenylephrine, and vasopressin. The patient is on IV fluids. 3. Atrial flutter with rapid ventricular response, heart rate up to 120s. We may be able to give the patient digoxin. However, the patient also has renal failure. 4. Hyperkalemia, potassium more than 7 and renal failure. Further evaluation by Dr. Hernandez. The patient is getting bicarb IV. 5. Severe acidosis with bicarb of and pH 6.8 on the ventilator per Dr. Sen. 6. COVID pneumonia. At the time of this dictation, the patient remains Full Code. Thank you very much, Dr. Traore, for allowing me to participate in this critically ill lady. Please do not hesitate to contact me for any questions regarding my evaluation. Sincerely, Bradly Babin M.D. DR: Reba JOB#: [id number] CC:
[2020-09-24] MEDS ORDERED: NS 275ml ONE (11:50)
[2020-09-24] MEDS ORDERED: Tubing IV Secondary IV ONE (11:50)
--- NOTE | 2020-09-24 11:51 | NUR ---
RESPIRATORY NOTE: CODE SILVIANO Gibbs blue called at 1134. Pt in asystole. I began compressions. Pt remained on ventilator per being Covid +. Dr. Mahajan arrived. Js RT and I switched off doing compressions. After rounds of compressions, ROSC was not achieved and pt at 1151.
--- NOTE | 2020-09-24 12:02 | Emergency Room Report ---
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 Multiple episodes of cardiac arrest earlier in the day. Patient with asystolic rhythm. Patient was given medications as per code sheet without return of spontaneous circulation. Patient was pronounced at 1151. Family be notified by staff. See code sheet for full medications. Medical Decision Making Diagnostic Impression: Primary Impression: Acute respiratory failure with hypoxia Additional Impressions: Pneumonia due to COVID-19 virus Respiratory failure requiring intubation Sepsis Last Vital Signs Date Time Temp Pulse Resp B/P (MAP) Pulse Ox O2 Delivery O2 Flow Rate FiO2 09/24/20 10:00 120 25 100/53 (69) 88 09/24/20 08:00 100 09/24/20 08:00 Mechanical Ventilator 09/24/20 00:00 98.0 09/21/20 01:40 15.0 Disposition: ADMITTED INPATIENT Condition: Critical Referrals: NOT CHOSEN IPA/,REFERRING (PCP) Adonay Mahajan MD Sep 24, 2020 12:02
[2020-09-24] MEDS ORDERED: D5W IV SCH (12:30)
[2020-09-24] MEDS ORDERED: NOREPINEPHRINE BITARTRATE IV SCH (12:30)
--- NOTE | 2020-09-24 13:00 | NUR ---
ACLS CODE PERFORMED ON PT [phone] WITH ROSC ACHIEVED & 1134 WITH PT PRONOUNCED BY MD GODINEZ AT 1151. CODE SHEET FILLED OUT IN ITS ENTIRETY BY THIS NURSE AND MOLD SWABBER LEWIS AND PLACED IN CHART. POST MORTEM CARE BY THIS RN. PTS BELONGINGS RETURNED TO FAMILY, GRANDMIRANDA RAMÍREZ, AND SIGNATURES OBTAINED ON PROPERTY SHEET. ORGAN DONOR CALLED, THIS RN SPOKE TO MS ALEXANDER REGARDING PTS MEDICAL CONDITION. PT PREPARED FOR [place].
--- NOTE | 2020-09-24 14:23 | Pulmonology Progress Note ---
Subjective ROS Limited/Unobtainable: Yes Interval Events: Patient seen at 11 Am Constitutional: Reports: no symptoms HEENT: Repors: no symptoms Respiratory: Reports: shortness of breath Cardiovascular: Reports: no symptoms Gastrointestinal/Abdominal: Reports: no symptoms Allergies: Coded Allergies: No Known Allergies (Unverified , 09/21/20) Objective Last 24 Hour Vital Signs Date Time Temp Pulse Resp B/P (MAP) Pulse Ox O2 Delivery O2 Flow Rate FiO2 09/24/20 12:00 112 29 82/41 (55) 09/24/20 11:15 133 31 150/129 (136) 09/24/20 11:10 2 9 97/79 (85) 09/24/20 11:05 101 28 63/39 (47) 09/24/20 11:00 112 29 82/41 (55) 09/24/20 10:59 115 30 87/48 (61) 82 09/24/20 10:55 110 30 89/54 (66) 85 09/24/20 10:54 104 29 84/51 (62) 09/24/20 10:50 103 29 60/42 (48) 09/24/20 10:49 104 29 72/41 (51) 09/24/20 10:47 106 30 68/42 (51) 82 09/24/20 10:45 108 30 74/45 (55) 83 09/24/20 10:40 119 30 89/42 (58) 80 09/24/20 10:35 120 30 98/55 (69) 81 09/24/20 10:30 120 31 100/53 (69) 80 09/24/20 10:25 120 30 106/55 (72) 80 09/24/20 10:20 120 30 104/54 (71) 81 09/24/20 10:15 120 30 105/53 (70) 81 09/24/20 10:10 120 30 99/52 (68) 79 09/24/20 10:05 120 30 99/51 (67) 79 09/24/20 10:00 119 29 90/51 (64) 80 09/24/20 10:00 120 25 100/53 (69) 88 09/24/20 09:15 122 26 95/53 (67) 09/24/20 09:10 125 25 109/56 (73) 09/24/20 09:05 119 22 113/61 (78) 88 09/24/20 09:00 124 24 101/54 (70) 09/24/20 09:00 121 25 94/57 (69) 09/24/20 08:55 120 25 92/54 (67) 09/24/20 08:50 120 25 102/57 (72) 09/24/20 08:45 119 25 94/54 (67) 09/24/20 08:40 114 25 81/48 (59) 09/24/20 08:35 118 25 101/53 (69) 09/24/20 08:34 111 25 108/64 (79) 09/24/20 08:30 119 25 85/45 (58) 09/24/20 08:25 120 25 96/50 (65) 09/24/20 08:20 118 25 93/50 (64) 09/24/20 08:20 118 25 93/50 (64) 09/24/20 08:15 112 25 87/50 (62) 09/24/20 08:15 112 25 87/50 (62) 09/24/20 08:13 110 25 71/42 (52) 87 09/24/20 08:13 110 25 71/42 (52) 87 09/24/20 08:12 111 24 77/38 (51) 86 09/24/20 08:12 111 24 77/38 (51) 86 09/24/20 08:10 114 25 72/47 (55) 09/24/20 08:10 114 25 72/47 (55) 09/24/20 08:05 123 25 92/49 (63) 09/24/20 08:05 123 25 92/49 (63) 09/24/20 08:00 123 25 101/53 (69) 09/24/20 08:00 124 24 101/54 (70) 09/24/20 08:00 100 09/24/20 08:00 156 09/24/20 08:00 Mechanical Ventilator 09/24/20 08:00 123 25 101/53 (69) 09/24/20 07:55 123 25 104/52 (69) 09/24/20 07:50 123 25 102/53 (69) 09/24/20 07:45 123 25 98/52 (67) 09/24/20 07:40 123 24 105/57 (73) 30 09/24/20 07:35 124 24 101/54 (70) 09/24/20 07:35 124 24 101/54 (70) 09/24/20 07:30 124 24 111/52 (71) 09/24/20 07:30 111 25 100 09/24/20 07:30 124 24 111/52 (71) 09/24/20 07:25 124 24 114/61 (78) 09/24/20 07:25 124 24 114/61 (78) 09/24/20 07:20 124 24 105/55 (72) 09/24/20 07:20 124 24 105/55 (72) 09/24/20 07:15 124 24 107/54 (71) 09/24/20 07:15 124 24 107/54 (71) 09/24/20 07:10 124 24 114/60 (78) 09/24/20 07:10 124 24 114/60 (78) 09/24/20 07:05 124 24 109/59 (76) 09/24/20 07:05 124 24 109/59 (76) 09/24/20 07:00 124 24 109/54 (72) 09/24/20 07:00 124 24 109/54 (72) 09/24/20 06:55 124 24 108/60 (76) 09/24/20 06:50 124 24 108/65 (79) 09/24/20 06:45 124 24 113/60 (77) 09/24/20 06:45 124 24 113/60 (77) 09/24/20 06:40 124 23 114/53 (73) 09/24/20 06:40 124 23 114/53 (73) 09/24/20 06:35 124 23 114/60 (78) 09/24/20 06:35 124 23 114/60 (78) 09/24/20 06:30 124 23 112/54 (73) 09/24/20 06:30 124 23 112/54 (73) 09/24/20 06:25 125 23 106/55 (72) 91 09/24/20 06:25 125 23 106/55 (72) 91 09/24/20 06:20 124 23 102/54 (70) 09/24/20 06:20 124 23 102/54 (70) 09/24/20 06:15 124 22 117/72 (87) 57 09/24/20 06:15 124 22 117/72 (87) 57 09/24/20 06:10 125 23 116/58 (77) 48 09/24/20 06:10 125 23 116/58 (77) 48 09/24/20 06:05 125 23 117/52 (73) 46 09/24/20 06:05 125 23 117/52 (73) 46 09/24/20 06:01 117/52 09/24/20 06:00 124 23 123/58 (79) 44 09/24/20 06:00 124 23 123/58 (79) 44 09/24/20 05:55 124 20 138/77 (97) 73 09/24/20 05:50 126 22 117/66 (83) 45 09/24/20 05:45 126 21 113/62 (79) 37 09/24/20 05:30 126 21 78/45 (56) 09/24/20 05:26 124 28 100 09/24/20 05:15 140 22 70/31 (44) 09/24/20 05:14 142 22 125/56 (79) 09/24/20 05:05 110 17 60/33 (42) 09/24/20 05:00 113 17 64/33 (43) 09/24/20 05:00 107 64/33 09/24/20 04:58 106 13 63/39 (47) 98 09/24/20 04:51 112 17 63/31 (42) 73 09/24/20 04:45 109 17 59/33 (42) 68 09/24/20 04:40 112 17 72/30 (44) 74 09/24/20 04:30 113 18 72/30 (44) 71 09/24/20 04:15 116 19 80/30 (47) 66 09/24/20 04:00 Mechanical Ventilator 09/24/20 04:00 156 09/24/20 04:00 118 22 95/39 (57) 61 09/24/20 04:00 100 09/24/20 04:00 20 60/35 Mechanical Ventilator 100 09/24/20 04:00 118 22 60/35 (43) 61 09/24/20 04:00 118 22 95/39 (57) 61 09/24/20 03:45 121 29 92/58 (69) 59 09/24/20 03:45 121 29 90/58 (69) 59 09/24/20 03:45 121 29 92/58 (69) 59 09/24/20 03:34 34 92/51 Mechanical Ventilator 100 09/24/20 03:33 33 90/58 Mechanical Ventilator 100 09/24/20 03:30 117 33 90/58 (69) 69 09/24/20 03:30 117 33 90/58 (69) 69 09/24/20 03:30 117 33 92/51 (65) 69 09/24/20 03:15 114 26 92/51 (65) 84 09/24/20 03:15 114 26 111/50 (70) 84 09/24/20 03:15 114 26 92/51 (65) 84 09/24/20 03:12 98 24 88/60 (69) 94 09/24/20 03:12 75/47 09/24/20 03:05 98 24 75/47 (56) 94 09/24/20 03:05 98 24 75/47 (56) 94 09/24/20 03:00 99 24 66/32 (43) 92 09/24/20 03:00 99 24 66/32 (43) 92 09/24/20 03:00 99 24 66/32 (43) 92 09/24/20 02:45 115 26 89/50 (63) 82 09/24/20 02:45 25 89/50 Mechanical Ventilator 100 09/24/20 02:45 115 26 99/58 (72) 82 09/24/20 02:45 115 26 99/58 (72) 82 09/24/20 02:42 115 30 100 09/24/20 02:30 114 28 91/65 (74) 89 09/24/20 02:30 114 28 91/65 (74) 89 09/24/20 02:30 114 28 91/65 (74) 89 09/24/20 02:15 115 26 120/65 (83) 85 09/24/20 02:15 115 26 120/65 (83) 85 09/24/20 02:15 115 26 120/65 (83) 85 09/24/20 02:00 114 23 117/62 (80) 87 09/24/20 02:00 114 23 117/62 (80) 87 09/24/20 02:00 114 23 117/62 (80) 87 09/24/20 01:45 114 28 120/62 (81) 90 09/24/20 01:45 114 28 120/62 (81) 90 09/24/20 01:45 27 117/62 Mechanical Ventilator 100 09/24/20 01:38 112 24 104/57 (73) 90 09/24/20 01:38 112 24 104/57 (73) 90 09/24/20 01:30 123 20 75/50 (58) 88 09/24/20 01:30 123 20 75/50 (58) 88 09/24/20 01:15 116 31 100/55 (70) 81 09/24/20 01:15 116 31 100/55 (70) 81 09/24/20 01:00 115 28 113/51 (71) 72 09/24/20 01:00 115 28 113/51 (71) 72 09/24/20 01:00 115 28 113/51 (71) 72 09/24/20 00:58 112 36 100 09/24/20 00:45 115 26 110/51 (70) 79 09/24/20 00:45 27 113/51 Mechanical Ventilator 100 09/24/20 00:45 115 26 110/51 (70) 79 09/24/20 00:45 115 26 110/51 (70) 79 09/24/20 00:30 115 29 105/56 (72) 68 09/24/20 00:30 115 29 105/56 (72) 68 09/24/20 00:30 115 29 105/56 (72) 68 09/24/20 00:15 118 25 101/67 (78) 70 09/24/20 00:15 118 25 101/67 (78) 70 09/24/20 00:15 118 25 101/67 (78) 70 09/24/20 00:00 113 26 99/56 (70) 76 09/24/20 00:00 98.0 113 26 99/56 (70) 76 09/24/20 00:00 114 09/24/20 00:00 113 26 99/56 (70) 76 09/24/20 00:00 Mechanical Ventilator 09/24/20 00:00 100 09/23/20 23:45 114 30 82/54 (63) 75 09/23/20 23:45 27 90/55 Mechanical Ventilator 100 09/23/20 23:40 114 28 81/52 (62) 74 09/23/20 23:35 114 30 82/54 (63) 75 09/23/20 23:30 114 27 81/49 (60) 74 09/23/20 23:00 114 35 100 09/23/20 23:00 108 27 93/53 (66) 77 09/23/20 22:48 93/60 09/23/20 22:45 25 93/55 Mechanical Ventilator 100 09/23/20 22:15 98 23 134/90 (105) 73 09/23/20 22:00 108 27 154/130 (138) 70 09/23/20 21:45 27 137/80 Mechanical Ventilator 100 09/23/20 21:45 132 29 137/80 (99) 69 09/23/20 21:30 111 32 143/78 (99) 64 09/23/20 21:30 30 143/78 Mechanical Ventilator 100 09/23/20 21:15 116 34 139/55 (83) 63 09/23/20 21:15 33 139/55 Mechanical Ventilator 100 09/23/20 21:10 122 37 100 09/23/20 21:00 35 144/71 Mechanical Ventilator 100 09/23/20 21:00 113 36 144/71 (95) 63 09/23/20 20:45 117 39 142/90 (107) 67 09/23/20 20:45 37 142/90 Mechanical Ventilator 100 09/23/20 20:30 120 41 158/105 (122) 68 09/23/20 20:30 39 158/105 Mechanical Ventilator 100 09/23/20 20:15 120 43 144/79 (100) 70 09/23/20 20:15 42 144/79 Mechanical Ventilator 100 09/23/20 20:00 Mechanical Ventilator 09/23/20 20:00 98.4 108 37 128/67 (87) 96 09/23/20 20:00 122 09/23/20 20:00 44 128/67 Mechanical Ventilator 100 09/23/20 20:00 100 09/23/20 19:45 41 149/63 Mechanical Ventilator 100 09/23/20 19:30 43 167/87 Mechanical Ventilator 100 09/23/20 19:00 115 36 148/116 (127) 98 09/23/20 19:00 29 132/85 Mechanical Ventilator 100 09/23/20 18:56 125 42 100 09/23/20 18:45 36 125/88 Mechanical Ventilator 100 09/23/20 18:30 43 127/91 Mechanical Ventilator 100 09/23/20 18:15 44 154/100 Mechanical Ventilator 100 09/23/20 18:00 121 44 145/91 (109) 90 09/23/20 18:00 44 145/91 Mechanical Ventilator 100 09/23/20 17:00 95 33 100 09/23/20 17:00 26 134/80 Mechanical Ventilator 100 09/23/20 17:00 93 30 116/72 (87) 100 09/23/20 16:08 77/43 09/23/20 16:00 25 119/71 Mechanical Ventilator 100 09/23/20 16:00 99.3 96 30 105/64 (78) 99 09/23/20 16:00 100 09/23/20 16:00 Mechanical Ventilator 09/23/20 15:09 95 09/23/20 15:00 91 31 100 09/23/20 15:00 29 109/61 Mechanical Ventilator 100 09/23/20 15:00 95 29 103/64 (77) 100 Intake and Output 09/23/20 09/24/20 19:00 07:00 Intake Total 1491.625 ml 1889.14681 ml Output Total 400 ml 360 ml Balance 1091.625 ml 1529.07206 ml IV Total 1491.625 ml 1889.02131 ml Output Urine Total 400 ml 360 ml # Bowel Movements 1 General Appearance: no acute distress HEENT: atraumatic Respiratory: rhonchi - bilaterally Cardiovascular: normal rate Abdomen: soft, non tender Laboratory Tests 09/23/20 20:12: Lactic Acid Level 3.90H, Troponin I 4.140H 09/23/20 21:14: Arterial Blood pH 7.183*L, Arterial Blood Partial Pressure CO2 40.3, Arterial Blood Partial Pressure O2 39.8*L, Arterial Blood HCO3 14.8*L, Arterial Blood Oxygen Saturation 63.1*L, Arterial Blood Base Excess -12.8*L, Marck Test Positive 09/24/20 04:30: Lactic Acid Level 8.20H, Troponin I 3.951H, White Blood Count 28.5*H, Red Blood Count 4.10L, Hemoglobin 11.0L, Hematocrit 35.5L, Mean Corpuscular Volume 87, Mean Corpuscular Hemoglobin 26.8L, Mean Corpuscular Hemoglobin Concent 30.9L, Red Cell Distribution Width 15.7H, Platelet Count 66#L, Mean Platelet Volume 9.2, Neutrophils (%) (Auto) , Lymphocytes (%) (Auto) , Monocytes (%) (Auto) , Eosinophils (%) (Auto) , Basophils (%) (Auto) , Differential Total Cells Counted 100, Neutrophils % (Manual) 48, Lymphocytes % (Manual) 51H, Monocytes % (Manual) 1, Eosinophils % (Manual) 0, Basophils % (Manual) 0, Band Neutrophils 0, Platelet Estimate DecreasedL, Platelet Morphology Normal, Hypochromasia 1+, Anisocytosis 1+, Haptoglobin [Pending], Sodium Level 142, Potassium Level 7.3*H, Chloride Level 113H, Carbon Dioxide Level 13L, Anion Gap 16H, Blood Urea Nitrogen 48H, Creatinine 2.5#H, Estimat Glomerular Filtration Rate 18.6, Glucose Level 195H, Calcium Level 6.4L, Lactate Dehydrogenase > 4000H 09/24/20 06:22: POC Whole Blood Glucose 171H 09/24/20 08:37: Arterial Blood pH 6.828*L, Arterial Blood Partial Pressure CO2 49.5H, Arterial Blood Partial Pressure O2 52.4L, Arterial Blood HCO3 8.0*L, Arterial Blood Oxygen Saturation 69.4*L, Arterial Blood Base Excess -25.8*L, Marck Test Positive Current Medications Medications (Trade) Dose Ordered Sig/Lui Route PRN Reason Start Time Stop Time Status Last Admin Dose Admin Albumin Human 100 ml @ 100 mls/hr Q8HR IV 09/24/20 14:00 12/23/20 13:59 Chlorhexidine Gluconate (Dinora-Hex 2%) 1 applic DAILY@2000 TOPIC 09/23/20 20:00 12/22/20 19:59 09/23/20 20:11 Dexamethasone Sodium Phosphate (Decadron 10mg/ ml Inj) 6 mg DAILY IV 09/21/20 09:00 10/01/20 23:59 09/24/20 09:18 Dextrose (Dextrose 50%) 25 ml Q30M PRN IV Hypoglycemia 09/22/20 10:15 12/21/20 10:14 Dextrose (Dextrose 50%) 50 ml Q30M PRN IV Hypoglycemia 09/22/20 10:15 12/21/20 10:14 Dextrose/Sodium Chloride 1,000 ml @ 100 mls/hr Q10H IV 09/23/20 20:00 10/23/20 19:59 09/24/20 09:21 Fentanyl Citrate 250 ml @ 0 mls/hr Q24H IV 09/23/20 11:45 09/25/20 11:44 09/24/20 03:34 Insulin Aspart (NovoLOG) BEFORE MEALS AND HS SUBQ 09/22/20 11:30 12/21/20 11:29 09/24/20 06:27 Norepinephrine Bitartrate 16 mg/ Dextrose 500 ml @ 0 mls/hr Q24H IV 09/24/20 12:30 09/27/20 12:29 Pantoprazole (Protonix) 40 mg Q12HR IVP 09/24/20 21:00 10/24/20 08:59 Phenylephrine HCl 100 mg/Dextrose 250 ml @ 0 mls/hr Q24H IV 09/24/20 05:00 09/27/20 04:59 09/24/20 05:00 Piperacillin Sod/ Tazobactam Sod 3.375 gm/Sodium Chloride 110 ml @ 27.5 mls/hr EVERY 8 HOURS IVPB 09/21/20 06:00 09/26/20 05:59 09/24/20 06:26 Vasopressin 100 units/Sodium Chloride 100 ml @ 0 mls/hr Q24H IV 09/24/20 05:00 09/27/20 04:48 09/24/20 05:28 Assessment/Plan Assessment/Plan 1. Elevated inflammatory markers -Given her presentation, recommended CTA of chest with contrast to rule out pulmonary embolism -On Lovenox 2. Recent history of COVID-19 pneumonia with hypoxia on arrival -Patient was reported to test positive for COVID-19 2 weeks prior -On dexamethasone, and Zosyn 3. Hypoxia -Now intubated; on AC mode; 100% FiO2; PEEP 5 ->10 4. Hyperglycemia, likely steroid-induced -Monitor blood glucose - low dose insulin sliding scale 5. Elevated troponin -Recommend serial troponin 6. Leukocytosis -On broad-spectrum antibiotics -Afebrile 7. Shock ; on multiple pressors Grave prognosis Discussed with Dr León Sen,Shkaeel Velez MD Sep 24, 2020 14:23
--- NOTE | 2020-09-24 14:29 | NUR ---
CASE MANAGEMENT:REVIEW 09/24/20 SI: COVID PNA. SEPSIS. ACUTE RESPIRATORY FAILURE 98.0 123 25 92/49 86% ON VENT SUPPORT W/100% FIO2 WBC+28.5 PLT-66 K+7.3 ANION GAP+16 BUN+48 CR+2.5 TROPONIN(+) 3.951 PH-6.8 PCO2+49.5 PO2-52.4 HCO3-8.0 O2 SAT-69.4 @ 1151
--- NOTE | 2020-09-24 17:16 | NUR ---
INSURANCE CLINICALS FAXED TO [facility]#[phone] fax# [phone]
--- NOTE | 2020-09-25 02:24 | Cardiology Report ---
APPROVED REPORT EKG Measurement Heart [id number] <Conclusion> Sinus tachycardia with premature atrial complexes Septal infarct, age undetermined ST & T wave abnormality, consider anterolateral ischemia Abnormal ECG
--- NOTE | 2020-09-25 02:25 | Cardiology Report ---
APPROVED REPORT EXAM: Two-dimensional and M-mode echocardiogram with Doppler and color Doppler. INDICATION Coronary artery disease M-Mode DIMENSIONS IVSd1.0 (0.7-1.1cm)Left Atrium (MM)2.0 (1.6-4.0cm) LVDd2.3 (3.5-5.6cm)Aortic Root2.6 (2.0-3.7cm) PWd1.0 (0.7-1.1cm)Aortic Cusp Exc.1.9 (1.5-2.0cm) IVSs1.5 cm LVDs1.4 (2.5-4.0cm) PWs1.2 cm <Conclusion> Technically limited study due to patient was between code blue. Normal left ventricular chamber size,systolic function and wall motion. Left ventricular ejection fraction grossly estimated to be 65-70%. Mild left ventricular hypertrophy by 2D. Anterior Echo-free space, may be due to pericardial fat or effusion. Left atrial size is within limits of normal. Right atrium ad, RV are enlarged. RV hyoikinesis Focal aortic valve sclerosis with adequate cusp excursion to extent visualized. Thickened mitral valve leaflets with normal excursion. Mitral annulus and aortic root calcification. Normal pulmonic valve structure. Normal tricuspid valve structure. Subcostal views are not obtainable. A color flow and spectral Doppler study was performed and revealed: Mild aortic regurgitation. There is evidence of mid LV cavity gradient of 19 mmhg Trace mitral regurgitation. Mitral diastolic velocities suggest reduced left ventricular relaxation c/w mild diastolic dysfunction (Grade I). Moderate tricuspid regurgitation. Tricuspid systolic velocities suggests peak right ventricular systolic pressure of 38 mmHg, consistent with mild pulmonary hypertension. Mild pulmonic regurgitation present. d/w dr wiley at 3:30 pm
--- NOTE | 2020-09-26 16:10 | Discharge Summary ---
Discharge Summary Discharge Summary _ Date of admission: 09/21/2020 Date of expiration: 09/24/2020 History of Present Illness and Brief Hospital Course Ms. Mckeon was a 80-year-old female with past medical history of hypertension, who presented to the ED for evaluation of shortness of breath. She reported testing positive for COVID-19 2 weeks prior to presentation. Patient was recovering at home but her symptoms worsened in the last few days. Patient was hypoxic on arrival and her oxygen saturation improved to 90% on nonrebreather. She also complained of tightness in her chest and nonproductive cough which was worse with exertion. For her COVID-19 pneumonia, she was started on dexamethasone and antibiotics. She was placed on BiPAP given her hypoxia. She was eventually intubated and transferred to ICU. Pressors were added to support her blood pressure. Her grave Prognosis was discussed with her family. Family still requested her to remain full code. On 09/24/2020, patient coded and CPR was started. ROSC was achieved. However, she coded again. ROSC was unable to be achieved despite multiple rounds of CPR. Unfortunately, patient was pronounced on 09/24/2020 at 1151. Cause of : Cardiopulmonary arrest and Consultants: Cardiology Dr. Babin Nephrology Dr. Champagne Pulmonology Dr. Sen Final diagnoses Septic shock COVID-19 pneumonia Atrial flutter with RVR Hyperkalemia with renal failure Respiratory failure Hypertension Weakness Hyperkalemia Hyperglycemia likely steroid-induced Leukocytosis I have been assigned to dictate discharge summary for this account. Augusto Hein Sep 26, 2020 16:10
== END 2020-09-24 11:51 | disposition expired | DRG 871 ==
LOC: EDBD 00:26 → EMR 00:59 → 2W 01:00 → EDBEDREQ 01:44 → 2W 09-22 21:09 → ICU 09-23 04:58
PROC: 5A09457 Assistance with Respiratory Ventilation, 24-96 Consecutive Hours, Continuous Positive Airway Pressure (ICD-10-PCS; principal; 2020-09-21)
PROC: 06HM33Z Insertion of Infusion Device into Right Femoral Vein, Percutaneous Approach (ICD-10-PCS; principal; 2020-09-21)
PROC: 0BH17EZ Insertion of Endotracheal Airway into Trachea, Via Natural or Artificial Opening (ICD-10-PCS; principal; 2020-09-21)
PROC: 5A1945Z Respiratory Ventilation, 24-96 Consecutive Hours (ICD-10-PCS; 2020-09-24)
PROC: 5A12012 Performance of Cardiac Output, Single, Manual (ICD-10-PCS; 2020-09-24)
DX: A41.89 Other specified sepsis (principal); U07.1 COVID-19; J12.82 Pneumonia due to coronavirus disease 2019; J96.01 Acute respiratory failure with hypoxia; R65.21 Severe sepsis with septic shock; I21.4 Non-ST elevation (NSTEMI) myocardial infarction; E87.1 Hypo-osmolality and hyponatremia; I48.92 Unspecified atrial flutter; I10 Essential (primary) hypertension; R63.4 Abnormal weight loss; R73.9 Hyperglycemia, unspecified; T38.0X5A Adverse effect of glucocorticoids and synthetic analogues, initial encounter; R53.1 Weakness
CPT/HCPCS: 36415; 71045; 80048; 80053; 81003; 82550; 82553; 82728; 82803; 82962; 83010; 83605; 83615; 83690; 83880; 84484; 85007; 85025; 85379; 85610; 85730; 86140; 87040; 92950; 93005; 93306; 94002; 94003; 94640; 94660; 96361; 96365; 96367; 96375; 99291; J1815; J2370; J7030